=== PATIENT | female | born 1945 | race Caucasian/White ===

== ENCOUNTER → 2020-09-14 11:27 | Outpatient (CLI) | payer MEDICARE, SELFPAY ==
--- NOTE | ~2020-09-14 | XR_ITS ---
EXAMINATION: XR chest 2V DATE: 09/14/2020 12:03 INDICATION: Other specified symptoms and signs involving the circulatory system. Cough. Shortness of breath. TECHNIQUE: Frontal and lateral views of the chest were obtained. COMPARISON: Chest 2 views 09/29/2013 FINDINGS: There is mild atelectasis at the lung bases. There are tiny pleural effusions. No pneumotho rax. The heart size is normal. IMPRESSION: 1. Mild atelectasis at the lung bases. 2. Tiny pleural effusions. Reviewed, dictated and finalized at location B.
== END ==
PROVIDERS: PCP Physician Assistant; Visit Provider Nurse Practitioner Family
DX: R09.89 Other specified symptoms and signs involving the circulatory and respiratory systems (principal); R91.8 Other nonspecific abnormal finding of lung field
CPT/HCPCS: 71046

== ENCOUNTER 2020-09-27 09:49 | Outpatient (CLI) | payer MEDICARE, SELFPAY ==
[2020-09-27 10:28] LABS: Anion Gap 7 mmol/L (8-16); Blood Urea Nitrogen 50 mg/dL (7-17); Calcium 9.9 mg/dL (8.4-10.2); Carbon Dioxide 30 mmol/L (22-30); Chloride 101 mmol/L (98-107); Estimated Glomerular Filt Rate 26; Glucose 367 mg/dL (65-105); Potassium 4.5 mmol/L (3.4-5.0); Sodium 138 mmol/L (137-145)
== END 2020-09-27 09:50 | disposition home or self-care (01) ==
LOC: ANHLAB 09:53
PROVIDERS: Visit Provider Internal Medicine Cardiovascular Disease
DX: R60.0 Localized edema (principal)
CPT/HCPCS: 36415; 80048

== ENCOUNTER 2021-01-22 13:30 | Outpatient (CLI) | payer MEDICARE, SELFPAY ==
--- NOTE | ~2021-01-22 | US_ITS ---
EXAMINATION: US venous doppler [facility] DATE: 01/22/2021 14:02 INDICATION: Left lower limb pain TECHNIQUE: Lamar scale images without and with compression and Doppler images of the left lower extrem ity veins were obtained. COMPARISON: None FINDINGS: The left common femoral vein, profunda femoral vein, femoral vein, popliteal vein, peroneal trunk, posterior tibial veins, and greater saphenous vein are patent. IMPRESSION: 1. Patent left lower extremity veins. No evidence of deep venous thrombosis. Reviewed, dictated and finalized at location A.
== END 2021-01-22 13:31 | disposition home or self-care (01) ==
PROVIDERS: PCP Family Medicine; Visit Provider Family Medicine
DX: M79.605 Pain in left leg (principal)
CPT/HCPCS: 93971

== ENCOUNTER 2021-01-23 09:34 | Outpatient (CLI) | payer MEDICARE, SELFPAY ==
--- NOTE | ~2021-01-23 | XR_ITS ---
EXAMINATION: XR lumbar spine min 4V DATE: 01/23/2021 10:10 INDICATION: Low back pain TECHNIQUE: Anteroposterior, lateral, and bilateral oblique views of the lumbar spine, and cone-down l ateral view of the lumbosacral junction were obtained. COMPARISON: None. FINDINGS: There are 6 mm of anterolisthesis of L4 on L5. There is moderate loss of intervertebral dis c space height at L4-5 and L5-S1. The vertebral body heights are maintained. There is no fracture. Sm all degenerative osteophytes project from the anterior endplates of multiple vertebral bodies. Advanc ed facet osteoarthritis is noted in the lower lumbar spine. Calcified atherosclerosis is noted. IMPRESSION: 1. Moderate to severe lower lumbar spondylosis without acute findings. Reviewed, dictated and finalized at location A.
== END 2021-01-23 09:35 | disposition home or self-care (01) ==
PROVIDERS: PCP Family Medicine; Visit Provider Family Medicine
DX: M54.5 Low back pain (principal); M47.816 Spondylosis without myelopathy or radiculopathy, lumbar region
CPT/HCPCS: 72110

== ENCOUNTER → 2021-03-18 08:22 | Outpatient (CLI) | payer MEDICARE, SELFPAY ==
--- NOTE | ~2021-03-18 | US_ITS ---
EXAMINATION: US renal BI EXAM DATE: 03/18/2021 09:06 INDICATION: Abnormal results of kidney function studies . TECHNIQUE: Multiple grayscale and Doppler images of the kidneys were obtained (by a technologist who performed the scan) and subsequently reviewed. There is no prior study for comparison. FINDINGS: There is bilateral renal cortical thinning. Right kidney: There is normal contour and increased echogenicity. It measures 9.4 x 5.3 x 5.0 centim eters. Several anechoic lesions consistent with cysts measuring up to 3.9 cm. There is no hydroneph rosis. Left kidney: There is normal contour and increased echogenicity. It measures 9.8 x 5.6 x 5.5 centime ters. There is anechoic lesion consistent with cyst measuring 1.7 cm. There is no hydronephrosis. Bladder unremarkable. IMPRESSION: 1. Echogenic, thinned renal cortices consistent with atrophy, medical renal disease. 2. Renal cysts. Reviewed, dictated and finalized at location B. IMPRESSION: 1. Echogenic, thinned renal cortices consistent with atrophy, medical renal di sease. 2. Renal cysts.
== END ==
PROVIDERS: PCP Family Medicine; Visit Provider Internal Medicine Nephrology
DX: R94.4 Abnormal results of kidney function studies (principal); N28.1 Cyst of kidney, acquired
CPT/HCPCS: 76775

== ENCOUNTER 2021-12-20 13:14 | Outpatient (RCR) | payer MEDICARE, SELFPAY ==
[2021-12-20] MEDS: FAMOTIDINE 20 MG TABLET PO (14:03)
[2021-12-20] MEDS: ACETAMINOPHEN 325 MG TABLET 650 MG PO (14:03)
[2021-12-20] MEDS: diphenhydrAMINE HCl CAP 25 MG CAPSULE PO (14:04)
[2021-12-20 14:19] VITALS: BP 133/60; PULSE 74; RESP 18; TEMP 36.6; O2SAT 96
[2021-12-20] MEDS: BEBTELOVIMAB 175 MG/2 ML VIAL IV PUSH (14:29)
[2021-12-20 15:19] VITALS: BP 148/68; PULSE 70; RESP 18; O2SAT 99
== END 2021-12-20 16:00 ==
LOC: AMCINF 13:14
PROVIDERS: PCP Family Medicine; Referring Provider Family Medicine; Visit Provider Internal Medicine Hematology & Oncology
DX: U07.1 COVID-19 (principal); I10 Essential (primary) hypertension; I25.10 Atherosclerotic heart disease of native coronary artery without angina pectoris; E11.9 Type 2 diabetes mellitus without complications
CPT/HCPCS: A9270; M0222; Q0222

== ENCOUNTER 2022-05-14 07:48 | Outpatient (CLI) | payer MEDICARE, SELFPAY ==
--- NOTE | 2022-06-11 18:46 | WPDSLEEPSTUD ---
Sleep Study Date of Study: 05/14/22 Ordering Provider: Good Jessica MD Interpreting Physician: Linh Álvarez DO Sleep Study Type: CPAP Titration Height: 1.52 m Weight: 112.491 kg Body Mass Index: 48.4 Neck Circumference (inches): 17.5 Justice: 4 Reason for Sleep Study Known SATYA on CPAP. Her machine is no longer transmitting data. Sleep History The patient is a 76-year-old female with atrial fibrillation, asthma, stage 4 chronic kidney disease, hypertension, hyperlipidemia, type 2 diabetes, urinary incontinence and SATYA on CPAP that had a sleep study ordered by her pressure control supervisor. The patient frequently awakens from sleep short of breath. She rarely awakens at night with heartburn, belching or cough. She rarely snores but is rarely loud enough others complain. She occasionally has trouble sleeping when she has a cold. She occasionally wakes up gasping for air throughout the night. She denies having breathing problems at night observed by herself or others. She denies sweating excessively at night. She frequently has heart palpitations or irregular heartbeats during the night. She rarely falls asleep during the day and never while driving. She denies sleep paralysis and cataplexy. She denies having trouble at school or work due to sleepiness. She occasionally experiences vivid dreamlike scenes upon awakening or falling asleep. She frequently feels afraid of going to sleep. She occasionally has nightmares and occasionally remembers her dreams. She occasionally has thoughts racing through her mind. She denies feeling sad or depressed. She frequently has anxiety. She frequently has muscular tension. She frequently notices parts of her body jerk. She frequently kicks during the night. She frequently has crawling and aching feelings in her legs as well as leg pain during the night. She rarely grinds her teeth during sleep but never awakens with morning jaw pain. She is occasionally bothered by pain during the day but never awakened by pain during the night. She occasionally wakes up feeling stiff in the morning. She occasionally wakes up with sore or achy muscles. She frequently wakes up with pain in the neck, spine or other joints. She goes to bed at 10:30 p.m. on both weekdays and weekends. He can take her 10-20 minutes to fall asleep. She wakes up 1-2 times throughout the night to urinate and let her dogs out. It takes her 1 hour to fall back asleep. She wakes up at 7:00 a.m. on both weekdays and weekends. She typically gets 8 hours of sleep per night. She will stay in bed for 10 minutes after waking up in the morning. She currently lives with her . She does not consume any caffeinated beverages within 2 hours of bedtime. She does not engage in physical exercise before bedtime. She will watch television before falling asleep. She will occasionally take naps in the afternoon or the evening and they are refreshing. She drinks half a cup of caffeinated beverage per day. She denies tobacco, alcohol and recreational drug use. [facility] Past Medical History Medical History (Updated 06/11/22 @ 20:35 by Linh Álvarez DO) Afib Anemia Asthma Bibasilar crackles Body mass index (BMI) 35 or more (11/10/18) Chronic atrial fibrillation CKD (chronic kidney disease) stage 3, GFR 30-59 ml/min COVID-19 Cystocele with rectocele Essential hypertension High cholesterol History of blood transfusion HTN (hypertension) Lumbar radiculopathy Mild intermittent asthma Mitral valve disease SATYA (obstructive sleep apnea) Osteoarthritis of multiple joints Pelvic pain in female Post menopausal syndrome Presence of stent in coronary artery in patient with coronary artery disease Thickened endometrium Type 2 diabetes mellitus with hyperglycemia Urinary incontinence Surgical History Surgical History H/O dilation and curettage H/O knee surgery 2011, bilateral
[2022-06-11 19:04] VITALS: BMI 48.4
== END 2022-05-15 06:59 | disposition home or self-care (01) ==
LOC: ANHCSM 07:48
PROVIDERS: PCP Family Medicine; Visit Provider Internal Medicine Pulmonary Disease
DX: G47.33 Obstructive sleep apnea (adult) (pediatric) (principal); Z99.89 Dependence on other enabling machines and devices; G47.61 Periodic limb movement disorder
CPT/HCPCS: 95811

== ENCOUNTER 2023-01-12 11:26 | Outpatient (CLI) | payer MEDICARE, SELFPAY ==
--- NOTE | ~2023-01-12 | XR_ITS ---
XR chest 2V 01/12/2023 11:49 Indication: Shortness of breath Procedure: 2 view chest Comparison: Comparison to multiple prior studies sequentially, with oldest reviewed study dated 07/10. Findings: Heart size normal. There are linear infiltrates of the lung bases which most likely represe nt atelectasis or scarring/fibrosis. No acute focal pneumonia, pleural effusion, edema or pneumothora x. No acute osseous abnormality. Impression: 1: Bibasilar atelectasis/scarring. Reviewed, dictated and finalized at location B. Impression: 1: Bibasilar atelectasis/scarring.
== END 2023-01-12 11:27 | disposition home or self-care (01) ==
PROVIDERS: PCP Family Medicine; Visit Provider Internal Medicine Nephrology
DX: N18.4 Chronic kidney disease, stage 4 (severe) (principal); R06.02 Shortness of breath; R53.83 Other fatigue; R91.8 Other nonspecific abnormal finding of lung field
CPT/HCPCS: 71046

== ENCOUNTER 2023-07-25 08:55 | Inpatient (IN) | payer MEDICARE, SELFPAY ==
[2023-07-25] VITALS (29 sets, daily range): BP systolic 121–168; BP diastolic 63–88; PULSE 58–77; RESP 8–32; TEMP 36.3–36.8; O2SAT 93–100; BMI 45.2
--- NOTE | ~2023-07-25 | XR_ITS ---
EXAMINATION: XR chest 1V portable DATE: 07/25/2023 09:16 INDICATION: Chest pain. TECHNIQUE: A single frontal view of the chest was obtained. COMPARISON: Chest 2 views 01/12/2023 FINDINGS: There is mild atelectasis in the lower lung zones. No pleural effusion or pneumothorax. The heart size is normal. IMPRESSION: 1. Mild atelectasis in the lower lung zones. Reviewed, dictated and finalized at location A. ER TERRAPIN
--- NOTE | ~2023-07-25 | US_ITS ---
EXAMINATION: US soft tissue UE LT DATE: 07/28/2023 15:56 INDICATION: Erythema and draining wound at the left antecubital fossa TECHNIQUE: Multiple grayscale and Doppler ultrasound images of the region of concern at the left ante cubital fossa were obtained. COMPARISON: None FINDINGS: There is focal mild subcutaneous edema likely related to cellulitis surrounding a 1.6 x 0.6 x 0.3 cm relatively superficial anechoic fluid collection with hypoechoic reportedly draining tract extending to the skin surface. The fluid collection lies along side a vessel within which there is internal vas cular flow on color Doppler but which appears demonstrates thickened luis raising suspicion for thro mbophlebitis. IMPRESSION: 1. Mild cellulitis surrounding a 1.6 x 0.6 x 0.3 cm likely draining abscess in the subcutaneous fat a t the left antecubital fossa along side a vessel demonstrating thickened luis which is suspicious fo r thrombophlebitis. Reviewed, dictated and finalized at location A. STRIAL REFRIGERATION MECHANIC IMPRESSION: 1. Mild cellulitis surrounding a 1.6 x 0.6 x 0.3 cm likely draining abscess in the subcutaneous fat at the left antecubital fossa along side a vessel demonstr ating thickened luis which is suspicious for thrombophlebitis.
--- NOTE | ~2023-07-25 | XR_ITS ---
EXAMINATION: XR chest 1V portable DATE: 07/28/2023 09:45 INDICATION: Fever. TECHNIQUE: A single frontal view of the chest was obtained. COMPARISON: Chest single view 07/25/2023, CT abdomen and pelvis 05/30/13 FINDINGS: There is mild atelectasis at the lung bases. No pleural effusion or pneumothorax. The heart size is normal. There is a prominent left paracardial fat pad. IMPRESSION: 1. Mild atelectasis at the lung bases. Reviewed, dictated and finalized at location E. ERCIAL ACCOUNTANT
--- NOTE | 2023-07-25 08:52 | ECG_ITS ---
Measurements Intervals [place] Rate: 62 P: 84 WI: 229 QRS: -32 QRSD: 109 T: 30 QT: 429 QTc: 437 Interpretive Statements SINUS RHYTHM WITH FIRST DEGREE AV BLOCK LEFT AXIS DEVIATION LOW QRS VOLTAGE IN PRECORDIAL LEADS CONSIDER ANTERIOR INFARCT, AGE INDETERMINATE INFERIOR INFARCT, AGE INDETERMINATE ABNORMAL ECG NO PREVIOUS ECG AVAILABLE FOR COMPARISON Electronically Signed On 07-25-2023 9:11:34 ACCOUNTING RECONCILIATION CLERK by Tavo Cristobal D.O.
--- NOTE | 2023-07-25 09:07 | ED.CHESTPAIN ---
HPI - Chest Pain General Chief Complaint: Chest Pain Stated Complaint: chest pain History of Present Illness HPI narrative: 78-year-old female presenting to the emergency department evaluation of chest pain. Patient states that approximately 1 hour prior to arrival she had 15 minutes of chest pain with associated diaphoresis. Patient denies any prior history of coronary artery disease. Patient does have history of diabetes, hypertension and cardiac stents. Patient reports she had multiple cardiac stents about 15 years ago. Patient has had nuclear med stress test since then. Related Data Home Medications Medication Instructions Recorded Confirmed flecainide 100 mg tablet 200 mg PO Q12H 04/28/19 07/25/23 furosemide 40 mg tablet 40 mg PO QAM 06/20/20 07/25/23 amlodipine 5 mg tablet 5 mg PO QAM 04/27/23 07/25/23 fluticasone 500 mcg-salmeterol 50 2 inh inhalation Q12H 04/27/23 07/25/23 mcg/dose blistr powdr for inhalation (Advair Diskus) allopurinol 100 mg tablet 100 mg PO QPM 07/25/23 07/25/23 clobetasol 0.05 % scalp solution 1 applic topical DAILY PRN Dry Skin 07/25/23 07/25/23 colchicine 0.6 mg tablet 0.6 mg PO .COMPLEX PRN gout 07/25/23 07/25/23 ezetimibe 10 mg tablet 10 mg PO QAM 07/25/23 07/25/23 insulin degludec 100 unit/mL (3 30 unit subcut QAM 07/25/23 07/25/23 mL) subcutaneous pen (Tresiba FlexTouch U-100 insulin) montelukast 10 mg tablet 10 mg PO QPM 07/25/23 07/25/23 oxybutynin chloride 5 mg tablet 5 mg PO QPM 07/25/23 07/25/23 valsartan 320 mg tablet 320 mg PO QAM 07/25/23 07/25/23 Allergies Allergy/AdvReac Type Severity Reaction Status Date / Time cat dander Allergy Mild Unknown Verified 05/26/23 10:34 mold Allergy Unknown Unknown Verified 05/26/23 10:34 jurdiance Allergy Mild Nausea and Uncoded 05/26/23 10:34 Vomiting Review of Systems Review of Systems: All systems reviewed & are unremarkable except as noted in HPI and below PMFSH Past Medical History Medical History Anemia Asthma mild intermittent CAD (coronary artery disease) Chronic atrial fibrillation Chronic kidney disease, stage 4 (severe) COVID-19 (2021) Cystocele with rectocele Environmental allergies Gout High cholesterol History of blood transfusion HTN (hypertension) Lumbar radiculopathy Mild bibasilar atelectasis Mitral valve disease SATYA on CPAP Osteoarthritis of multiple joints Post menopausal syndrome Thickened endometrium Type 2 diabetes mellitus with hyperglycemia Urinary incontinence Surgical History Surgical History H/O dilation and curettage H/O heart artery stent H/O knee surgery 2010, bilateral H/O myomectomy 2014 [place] teeth removed Family History Family History Mother Diabetes mellitus Hypertension Family history of malignant neoplasm of breast in first degree relative Sibling Diabetes mellitus Family history of chronic obstructive pulmonary disease Father Cerebrovascular accident, Onset Age: 64 Hypertension Social History Social History Smoking status: Never smoker Second hand tobacco smoke exposure: No Alcohol intake: never Substance use: never Substance use type: does not use Do You Feel Safe in your Home?: Yes Lack of Transportation: No Lack of Food: Never True Current Housing: I Have Housing Concerned About Future Housing: No Difficulty Paying Gas/Electric Bills: No Difficulty Paying for Meds: No Currently Unemployed: YES Education: Decline to Answer Difficulty w/ Childcare or Family Care: No Occupation/Education: retired Gender identity (if verbalized by the patient): Female Sexual Orientation (if Verbalized by the Patient): Straight or Heterosexual Spiritual care concerns: No Agree to blood products: Yes Ex
[2023-07-25] MEDS: NITROGLYCERIN SL 0.4 MG TABLET SUBLINGUAL ×2 (09:11→16:23)
[2023-07-25 09:13] LABS: Basophils Percent Auto 0.5 % (0.2-1.2); Eosinophils Absolute Auto 0.4 K/mm3 (0-0.3); Eosinophils Percent Auto 5.3 % (0-4.4); Hematocrit 42.2 % (37.0-47.0); Immature Granulocyte Absolute 0.04 K/mm3 (0.00-0.031); Immature Granulocyte Percent A 0.5 % (0-0.5); Lymphocytes Absolute Auto 1.91 K/mm3 (0.9-3.2); Lymphocytes Percent Auto 24.7 % (18.3-44.2); Mean Corpuscular HGB Conc 30.8 g/dl (32-36); Mean Corpuscular Hemoglobin 29.2 pg (26-34); Mean Corpuscular Volume 94.8 fl (80-100); Mean Platelet Volume 10.6 fl (7.4-10.4); Monocytes Absolute Auto 0.5 K/mm3 (0.1-0.6); Monocytes Percent Auto 6.5 % (2.6-8.5); Neutrophils Absolute Auto 4.8 K/mm3 (1.3-6.7); Neutrophils Percent Auto 62.5 % (45.5-73.1); Platelet Count Result 280 k/mm3 (150-375); Red Blood Count 4.45 M/mm3 (4.2-5.4); Red Cell Distribution Width 14.4 % (11.5-14.5); White Blood Count 7.7 K/mm3 (4.5-10.0)
[2023-07-25 09:23] LABS: Alanine Aminotransferase 16 U/L (6-35); Albumin Level 4.2 g/dL (3.5-5.1); Alkaline Phosphatase 85 U/L (38-126); Anion Gap 7 mmol/L (8-16); Aspartate Amino Transferase 22 U/L (14-36); Bilirubin,Total 0.6 mg/dL (0.2-1.3); Blood Urea Nitrogen 35 mg/dL (7-17); Calcium 9.5 mg/dL (8.4-10.2); Carbon Dioxide 26 mmol/L (22-30); Chloride 105 mmol/L (98-107); Estimated Glomerular Filt Rate 34; Glucose 135 mg/dL (65-110); Potassium 4.4 mmol/L (3.4-5.0); Sodium 138 mmol/L (137-145)
[2023-07-25 09:24] LABS: Prothrombin Time 13.2 Seconds (11.1-14.7)
[2023-07-25 09:25] LABS: Partial Thromboplastin Time 27.7 SECONDS (22.3-36.8)
[2023-07-25 09:34] LABS: NT Pro B Type Natriuretic Pept 65 pg/mL (19.9-100); Troponin I < 0.012 ng/mL (0.000-0.034)
--- NOTE | 2023-07-25 09:54 | ECG_ITS ---
Measurements Intervals [place] Rate: 59 P: 102 AL: 235 QRS: -36 QRSD: 114 T: 14 QT: 424 QTc: 422 Interpretive Statements SINUS BRADYCARDIA WITH FIRST DEGREE AV BLOCK INTRAVENTRICULAR CONDUCTION DELAY LOW QRS VOLTAGE IN PRECORDIAL LEADS CONSIDER ANTERIOR INFARCT, AGE INDETERMINATE INFERIOR INFARCT, AGE INDETERMINATE BASELINE ARTIFACT- I, II, III, AVR, AVL, AVF ABNORMAL ECG COMPARED TO ECG 07/25/2023 08:59:02 SINUS BRADYCARDIA NOW PRESENT Electronically Signed On 07-25-2023 16:58:51 PET TRAINING INSTRUCTOR by Tavo Cristobal D.O.
[2023-07-25 12:54] LABS: Troponin I 0.039 ng/mL (0.000-0.034)
[2023-07-25 13:30] LABS: Appearance Urine Clear (Clear); Bilirubin Urine Negative (Negative); Blood Urine Negative (Negative); Color Urine Yellow (Yellow); Glucose Urine UA Negative (Negative); Ketones Urine Negative (Negative); Leukocyte Esterase Ur Negative LEU/UL (Negative); Nitrate Urine Negative (Negative); Protein Urine Negative (Negative); Specific Grav Ur 1.014 (1.001-1.035); Urobilinogen Urine 0.2 mg/dL (<2.0); pH Urine 5.5 (5.0-9.0)
[2023-07-25 13:37] LABS: Add Urine Microscopic? NO
--- NOTE | 2023-07-25 14:00 | PM.IMHP ---
H&P: HPI History of Present Illness Date/Time: 07/25/23 14:00 Chief Complaint: Chest Pain Narrative: 78 y/o F presents here with chest pain with PMH of chronic AFib, anemia, asthma, CKD, HTN, HLD, SATYA, diabetes, mitral valve disease, and CAD with stents in place. Patient presents here from home via EMS for evaluation of chest pain. Pain began around 8:00 a.m. and lasted approximately 15 minutes. Patient was sitting and helping her with plumbing (turning water on and off while he made adjustments) when chest pain began. Pain across chest and described as burning with slow increase in intensity. Severity was a 7-8/10. Pain radiated into her left arm and tightness radiating into left side of neck. Experienced associated diaphoresis/cold sweats, fatigue, and shortness of breath. Denied palpitations, syncope, jaw pain, nausea, vomiting, sense of doom, GERD symptoms, or epigastric pain. Patient took aspirin 81 mg of chewable ASA and pain resolved. No other alleviating or aggravating factors. Patient has a cardiac history, CAD with 2 stents placement in (1999'). Currently follows with Jose VELOZ, last visit on 06/2023. Patient has had 2 recurrent episodes of chest pain. Second episode today was during transfer to the IMU, 8/10, occurred after patient ambulated to the restroom, and self-aborted. Third episode around 16:30 and worse than second episode. Pain similar in characteristics to initial episode, but increased in severity to 9/10. Pain reduced to 2/10 post SL nitro but pain/achiness arm and neck remain. Associated SOB and occured at rest. No active nausea or diaphoresis. Initial VS at presentation: 97.8, HR in 59, RR 16, 168/73, 97% on RA. ED workup showed no leukocytosis, no anemia, creatinine 1.5 (baseline), and UA not suspicious for UTI. Initial troponin negative, 2nd troponin 0.039. EKG showed first-degree AV block, left axis deviation, low QRS voltage, indeterminate age inferior infarct, possible anterior infarct age indeterminate. CXR showed mild atelectasis in the lower lung zones. Review of Systems Review of Systems: All systems reviewed & are unremarkable except as noted in HPI and below ON LICENSE OF [facility] Past Medical History Medical History Anemia Asthma mild intermittent CAD (coronary artery disease) Chronic atrial fibrillation Chronic kidney disease, stage 4 (severe) COVID-19 (2021) Cystocele with rectocele Environmental allergies Gout High cholesterol History of blood transfusion HTN (hypertension) Lumbar radiculopathy Mild bibasilar atelectasis Mitral valve disease SATYA on CPAP Osteoarthritis of multiple joints Post menopausal syndrome Thickened endometrium Type 2 diabetes mellitus with hyperglycemia Urinary incontinence Surgical History Surgical History H/O dilation and curettage H/O heart artery stent H/O knee surgery 2010, bilateral H/O myomectomy 2014 [place] teeth removed Family History Family History Mother Diabetes mellitus Hypertension Family history of malignant neoplasm of breast in first degree relative Sibling Diabetes mellitus Family history of chronic obstructive pulmonary disease Father Cerebrovascular accident, Onset Age: 64 Hypertension Social History Social History Smoking status: Never smoker Second hand tobacco smoke exposure: No Alcohol intake: never Substance use: never Substance use type: does not use Do You Feel Safe in your Home?: Yes Lack of Transportation: No Lack of Food: Never True Current Housing: I Have Housing Concerned About Future Housing: No Difficulty Paying Gas/Electric Bills: No Difficulty Paying for Meds: No Currently Unemployed: YES Education: Decline to Answer Difficulty w/ Childcare or Family C
[2023-07-25] MEDS: HEPARIN SODIUM 5,000 UNITS/ML VIAL 4000 UNITS IV PUSH ×2 (14:36→21:31)
[2023-07-25] MEDS: HEPARIN SOD/D5W 100 UNITS/ML 25,000 UNITS/250 ML BAG 9 UNITS IV CONT (14:37)
--- NOTE | 2023-07-25 15:34 | ADMGEN ---
This patient, Danielle Martines, was admitted to IMU Room 214-01. Patient/family oriented to hospital policies and general routines including ID bracelet, bed and alarms, visiting hours, pain management, procedures, bathroom and other care routines, personal items, smoking policy, room service/diet, and visiting hours. Information on how to activate the Rapid Response Team has been discussed. Patient/Family are encouraged to report perceived risks to care and to ask questions if they do not understand what they are told or what they should do.
[2023-07-25 15:58] LABS: HDL Direct 33 mg/dL
--- NOTE | 2023-07-25 16:00 | ECG_ITS ---
Measurements Intervals [place] Rate: 66 P: 96 [place]: 216 QRS: -41 QRSD: 125 T: 14 QT: 396 QTc: 417 Interpretive Statements SINUS RHYTHM WITH FIRST DEGREE AV BLOCK LEFT AXIS DEVIATION LOW VOLTAGE IN PRECORDIAL LEADS BORDERLINE R WAVE PROGRESSION, ANTERIOR LEADS INFERIOR INFARCT, AGE INDETERMINATE BASELINE ARTIFACT- I, II, III, AVR, AVL, AVF, V1-V6 ABNORMAL ECG COMPARED TO ECG 07/25/2023 12:30:28 SINUS RHYTHM NOW PRESENT Electronically Signed On 07-26-2023 8:08:11 WASTEWATER PROJECT MANAGER by Tavo Cristobal D.O.
[2023-07-25 16:08] LABS: LDL Cholesterol Direct 98 mg/dL
[2023-07-25] MEDS: NITROGLYCERIN OINTMENT 1 INCH DOSE TRANSDERM (17:13)
[2023-07-25] MEDS: ACETAMINOPHEN 500 MG TABLET 1000 MG PO (17:14)
[2023-07-25 18:23] LABS: Cholesterol 162 mg/dL (0-200)
[2023-07-25] MEDS: oxyBUTYnin CHLORIDE 5 MG TABLET PO (20:01)
[2023-07-25] MEDS: allopurinoL 100 MG TABLET PO (20:01)
[2023-07-25] MEDS: MONTELUKAST SODIUM 10 MG TABLET PO (20:01)
[2023-07-25] MEDS: FLECAINIDE ACETATE 100 MG TABLET 200 MG PO (20:02)
[2023-07-25] MEDS: INSULIN ASPART (*BKC) 100 UNITS/ML SUB-Q (20:16)
[2023-07-25 20:28] LABS: Glucose Point of Care 201 mg/dl (65-105)
[2023-07-25 20:58] LABS: Partial Thromboplastin Time 51.2 SECONDS (22.3-36.8)
[2023-07-26] VITALS (22 sets, daily range): BP systolic 96–134; BP diastolic 50–74; PULSE 58–88; RESP 17–24; TEMP 36.3–36.8; O2SAT 93–100
[2023-07-26 00:05] LABS: Glucose Point of Care 82 mg/dl (65-105)
[2023-07-26] MEDS: NITROGLYCERIN OINTMENT 1 INCH DOSE TRANSDERM ×5 (00:24→23:22)
[2023-07-26 03:36] LABS: Basophils Absolute Auto 0.1 K/mm3 (0.0-0.1); Basophils Percent Auto 0.5 % (0.2-1.2); Eosinophils Absolute Auto 0.4 K/mm3 (0-0.3); Eosinophils Percent Auto 3.8 % (0-4.4); Hematocrit 41.2 % (37.0-47.0); Hemoglobin 12.8 g/dL (12.0-15.0); Immature Granulocyte Absolute 0.03 K/mm3 (0.00-0.031); Immature Granulocyte Percent A 0.3 % (0-0.5); Lymphocytes Absolute Auto 2.57 K/mm3 (0.9-3.2); Lymphocytes Percent Auto 25.6 % (18.3-44.2); Mean Corpuscular HGB Conc 31.1 g/dl (32-36); Mean Corpuscular Hemoglobin 29.1 pg (26-34); Mean Corpuscular Volume 93.6 fl (80-100); Mean Platelet Volume 10.2 fl (7.4-10.4); Monocytes Absolute Auto 0.7 K/mm3 (0.1-0.6); Monocytes Percent Auto 6.7 % (2.6-8.5); Neutrophils Absolute Auto 6.3 K/mm3 (1.3-6.7); Neutrophils Percent Auto 63.1 % (45.5-73.1); Platelet Count Result 277 k/mm3 (150-375); Red Cell Distribution Width 14.1 % (11.5-14.5)
[2023-07-26 03:51] LABS: Anion Gap 6 mmol/L (8-16); Blood Urea Nitrogen 31 mg/dL (7-17); Calcium 9.2 mg/dL (8.4-10.2); Carbon Dioxide 28 mmol/L (22-30); Chloride 104 mmol/L (98-107); Estimated CRCL calculation 36 ml/min; Estimated Glomerular Filt Rate 40; Glucose 106 mg/dL (65-110); Potassium 3.8 mmol/L (3.4-5.0); Sodium 138 mmol/L (137-145)
[2023-07-26 03:56] LABS: Partial Thromboplastin Time 117.8 SECONDS (22.3-36.8)
[2023-07-26 07:52] LABS: Glucose Point of Care 161 mg/dl (65-105)
[2023-07-26] MEDS: FLUTICASONE/SALMETEROL 230-21 MCG INHALER 1 PUFF 2 PUFF INHALATION ×2 (08:41→19:48)
[2023-07-26] MEDS: EZETIMIBE 10 MG TABLET PO (10:01)
[2023-07-26] MEDS: PANTOPRAZOLE SODIUM IV 40 MG VIAL IV PUSH (10:01)
[2023-07-26] MEDS: FUROSEMIDE 40 MG TABLET PO (10:01)
[2023-07-26] MEDS: FLECAINIDE ACETATE 100 MG TABLET 200 MG PO (10:02)
[2023-07-26] MEDS: VALSARTAN 160 MG TABLET 320 MG PO (10:02)
[2023-07-26] MEDS: amLODIPine BESYLATE 5 MG TABLET PO (10:02)
[2023-07-26] MEDS: INSULIN GLARGINE (*BKC) 100 UNITS/ML 30 UNITS SUB-Q (10:06)
--- NOTE | 2023-07-26 10:34 | PM.CNCAR ---
Assessment and Plan Assessment and plan (1) NSTEMI (non-ST elevated myocardial infarction): Code(s): I21.4 - Non-ST elevation (NSTEMI) myocardial infarction Status: Acute Assessment and Plan: Patient has symptoms consistent with a non ST-elevation myocardial infarction. Started her on a heparin drip for which she remains. Nitroglycerin paste 1 in Q 6 hours to be continued. Aspirin 81 mg p.o. daily. Continue Zetia, amlodipine, valsartan. She is not on a statin per patient wishes and side effects. 2D echocardiogram Doppler will be ordered and reviewed. Will keep NPO after midnight and after discussing risks benefits alternatives she is willing to proceed with coronary angiogram tomorrow. (2) Chronic kidney disease, stage 4 (severe): Code(s): N18.4 - Chronic kidney disease, stage 4 (severe) Status: Acute Assessment and Plan: Will hold furosemide for now in preparation for coronary angiogram tomorrow to reduce worsening renal function risk. (3) HTN (hypertension): Qualifiers: Hypertension type: primary hypertension Qualified Code(s): I10 - Essential (primary) hypertension Code(s): I10 - Essential (primary) hypertension Status: Acute Assessment and Plan: Generally at goal (4) CAD (coronary artery disease): Code(s): I25.10 - Atherosclerotic heart disease of [place] coronary artery without angina pectoris Status: Acute Assessment and Plan: Previous stents to the circumflex and RCA. (5) Afib: Qualifiers: Atrial fibrillation type: paroxysmal Qualified Code(s): I48.0 - Paroxysmal atrial fibrillation Code(s): I48.91 - Unspecified atrial fibrillation Status: Acute Assessment and Plan: She is on improper dose of flecainide per medical reconciliation. Will reduce her flecainide to 100 mg p.o. q.12 hours. Given her coronary disease history, would like to transition off of flecainide completely. History of Present Illness History of Present Illness Consult date/time: 07/26/23 10:34 Requesting physician: Vikram Mir MD Consult reason: Other (Non-STEMI) Reason For Visit: NSTEMI Narrative: Reason for consultation: Non-STEMI Requesting provider: Dr. Mir Date of service 07/26/2023 History patient is a 78-year-old female patient of mine who has a history of CAD. She has had previous stent placement to the circumflex and RCA dating back to 2001. Most recent angiogram showed a tiny 95% stenosis of a high obtuse marginal branch and [id number] disease elsewhere and medical management was pursued. She has had a history of GI bleeding and is not on anticoagulation despite her atrial fibrillation history. She was helping her yesterday when she developed acute onset of chest pain which was severe and radiated down her left arm. She had associated shortness of breath and diaphoresis. Symptoms started about 8:00 a.m.. It did resolve after a few minutes of chewing an aspirin. Because of the severity of the pain though she did call 911 came to the hospital. She did rule in for myocardial infarction. She has had 2 other episodes of chest pain while on the floor. I started her on nitroglycerin paste yesterday and since that time her chest pain has not recurred. She has had little bit of intermittent chest tightness that has radiated up into her neck but currently is pain-free. She has had less swelling. She denies any significant shortness of breath, syncope, presyncope, paroxysmal nocturnal dyspnea, orthopnea, palpitations Review of Systems Review of Systems: All systems reviewed & are unremarkable except as noted in HPI and below Constitutional: Constitutional: Denies body ache(s) Eyes: Eyes: Denies blurry vision ENT: Reports Normal hearing present Cardiovascular: Cardiovascular: Reports chest pain and Reports leg edema Respiratory: Respiratory: Denies dyspnea Gastrointestinal: Gastroint
[2023-07-26 10:37] LABS: Partial Thromboplastin Time 57.1 SECONDS (22.3-36.8)
[2023-07-26 11:36] LABS: Glucose Point of Care 135 mg/dl (65-105)
[2023-07-26] MEDS: ASPIRIN 81 MG ENTERIC TABLET PO (11:36)
[2023-07-26] MEDS: HEPARIN SODIUM 5,000 UNITS/ML VIAL 3000 UNITS IV PUSH (11:37)
--- NOTE | 2023-07-26 11:58 | PM.IMPN ---
Progress Note: A&P Assessment and Plan (1) NSTEMI (non-ST elevated myocardial infarction): Code(s): I21.4 - Non-ST elevation (NSTEMI) myocardial infarction Status: Acute Assessment and Plan: Patient has symptoms consistent with a non ST-elevation myocardial infarction. Started her on a heparin drip for which she remains. Nitroglycerin paste 1 in Q 6 hours to be continued. Aspirin 81 mg p.o. daily. Continue Zetia, amlodipine, valsartan. She is not on a statin per patient wishes and side effects. 2D echocardiogram Doppler will be ordered and reviewed. Will keep NPO after midnight and after discussing risks benefits alternatives she is willing to proceed with coronary angiogram tomorrow. (2) Afib: Qualifiers: Atrial fibrillation type: paroxysmal Qualified Code(s): I48.0 - Paroxysmal atrial fibrillation Code(s): I48.91 - Unspecified atrial fibrillation Status: Acute Assessment and Plan: She is on improper dose of flecainide per medical reconciliation. Will reduce her flecainide to 100 mg p.o. q.12 hours. Given her coronary disease history, would like to transition off of flecainide completely. Currently rate controlled at average 70 bpm on bedside telemetry. (3) Type 2 diabetes mellitus with chronic kidney disease: Qualifiers: Diabetes mellitus nursing home insulin use: with bracer use Chronic kidney disease stage: stage 4 (severe) Qualified Code(s): E11.22 - Type 2 diabetes mellitus with diabetic chronic kidney disease; N18.4 - Chronic kidney disease, stage 4 (severe); Z79.4 - skilled nursing (current) use of insulin Code(s): E11.22 - Type 2 diabetes mellitus with diabetic chronic kidney disease Status: Acute Assessment and Plan: - hypoglycemia protocol - POC blood glucose ACHS - home medication resumed/held -Tresiba continued, Ozempic held (NF). Injection day for Ozempic is on Tuesdays. - correction regimen ordered - low/high dose TIDWM and HS - A1C 7.4% in 05/2022 (4) HTN (hypertension): Qualifiers: Hypertension type: primary hypertension Qualified Code(s): I10 - Essential (primary) hypertension Code(s): I10 - Essential (primary) hypertension Status: Acute Assessment and Plan: Generally at goal (5) Chronic kidney disease, stage 4 (severe): Code(s): N18.4 - Chronic kidney disease, stage 4 (severe) Status: Acute Assessment and Plan: Will hold furosemide for now in preparation for coronary angiogram tomorrow to reduce worsening renal function risk. (6) CAD (coronary artery disease): Code(s): I25.10 - Atherosclerotic heart disease of [place] coronary artery without angina pectoris Status: Acute Assessment and Plan: Previous stents to the circumflex and RCA. Plan Patient seen by Cardiology and will have Cath done 07/26. Home Meds/Chronic Conditions - HLD: continue Zetia - asthma: Continue Advair, montelukast - gout: Continue allopurinol, colchicine p.r.n. Diet: heart healthy GI Prophylaxis: pantoprazole IVP DVT Prophylaxis: heparin gtt Lines: peripheral Code Status: Full Code Time Spent With Patient Time with patient: 25 - 35 minutes Subjective Date/time seen: 07/26/23 11:58 Interval history: Patient was admitted for chest pain with increased troponins, diagnosed with NSTEMI and Cardiology has seen her and is planning to go to the lab pack chemist tomorrow. Review of Systems Review of Systems: All systems reviewed & are unremarkable except as noted in HPI and below Exam Narrative: Awake alert oriented appears to be in no acute distress at present. Appears stated age Const: General: comfortable and no acute distress Other: , female, obese body habitus. HENMT: Face/Nose/Sinus: Normal nares present Mouth: Yes moist mucous membranes Eyes: General: appearance normal, both eyes and all related structures Sclera: sclerae normal Pupils: Equa
[2023-07-26] MEDS: HEPARIN SOD/D5W 100 UNITS/ML 25,000 UNITS/250 ML BAG 12 UNITS IV CONT (14:40)
[2023-07-26 15:48] LABS: Glucose Point of Care 131 mg/dl (65-105)
[2023-07-26] MEDS: ACETAMINOPHEN 325 MG TABLET 650 MG PO ×2 (17:05→23:22)
[2023-07-26] MEDS: oxyBUTYnin CHLORIDE 5 MG TABLET PO (17:11)
[2023-07-26] MEDS: allopurinoL 100 MG TABLET PO (17:11)
[2023-07-26] MEDS: MONTELUKAST SODIUM 10 MG TABLET PO (17:11)
[2023-07-26 18:48] LABS: Partial Thromboplastin Time 37.6 SECONDS (22.3-36.8)
[2023-07-26] MEDS: HEPARIN SODIUM 5,000 UNITS/ML VIAL 4000 UNITS IV PUSH (19:09)
[2023-07-26 20:30] LABS: Glucose Point of Care 223 mg/dl (65-105)
[2023-07-26] MEDS: FLECAINIDE ACETATE 100 MG TABLET PO (21:09)
[2023-07-27] VITALS (42 sets, daily range): BP systolic 64–146; BP diastolic 41–99; PULSE 60–86; RESP 15–89; TEMP 36.2–37.4; O2SAT 89–100
--- NOTE | 2023-07-27 | ECHO_ITS ---
Patient Info Name: Danielle Martines Age: 78 years : 1945 Gender: Female Ht: 60 in Wt: 236 lbs BSA: 2.20 m2 HR: 72 bpm BP: 96 / 47 mmHg Heart Rhythm: Sinus Rhythm Technical Quality: Fair Exam Date: 07/27/2023 9:11 AM Exam Location: Echo Lab Patient Status: Inpatient Admit Date: 07/26/2023 Staff Ordering Physician: Jayson Garcia MD Customer Advocacy Manager: Attending Provider: Govind Shea MD Referring Physician: Jose BEEBE; Exam Type: CA echo doppler color flow Study Info Indications I21.4 - Non-ST elevation (NSTEMI) myocardial infarction Complete two-dimensional, color flow and Doppler transthoracic echocardiogram is performed. Summary 1. Complete two-dimensional, color flow and Doppler transthoracic echocardiogram is performed. 2. Left ventricular chamber dimension is normal. 3. Left ventricular systolic function is normal, estimated at 65-70%. 4. There is mildly increased left ventricular wall thickness. 5. The left ventricular diastolic function is grade I diastolic dysfunction. 6. Left atrial chamber dimension is mildly enlarged. 7. There is mild aortic valve calcification. 8. The mitral valve annulus is mildly calcified. 9. There is mild mitral valve regurgitation. 10. There is mild tricuspid valve regurgitation. 11. There is mild pulmonic regurgitation. Left Ventricle Left ventricular chamber dimension is normal. Left ventricular systolic function is normal, estimated at 65-70%. There is mildly increased left ventricular wall thickness. The left ventricular diastolic function is grade I diastolic dysfunction. Right Ventricle Right ventricular chamber dimension is normal. Right ventricular systolic function is normal. Left Atria Left atrial chamber dimension is mildly enlarged. Right Atria Right atrial chamber dimension is normal. Atrial Septum Intact interatrial septum visualized by color flow imaging. Aortic Valve The aortic valve is trileaflet. There is moderate aortic valve sclerosis. There is no aortic valve stenosis. There is trace aortic valve regurgitation. There is mild aortic valve calcification. Pulmonic Valve The pulmonic valve is normal. There is no pulmonic valve stenosis. There is mild pulmonic regurgitation. Mitral Valve There is no mitral valve stenosis. There is mild mitral valve regurgitation. The mitral valve annulus is mildly calcified. Tricuspid Valve The tricuspid valve leaflets are normal. There is no significant tricuspid valve stenosis. There is mild tricuspid valve regurgitation. Pericardium/Pleural The pericardium appears normal. There is no pericardial effusion. Inferior Vena Cava Normal inferior vena cava with >50% collapse upon inspiration consistent with normal right atrial pressure, 5 mmHg. Aorta The aortic root size at the sinus of Valsalva is normal. Left Ventricular Outflow Tract Name Value Normal LVOT 2D LVOT Diameter 2.0 cm LVOT Doppler LVOT Peak Gradient 3 mmHg LVOT Mean Gradient 1 mmHg LVOT VTI 16 cm LVOT VTI/AV VTI Ratio 0.5 LVOT Stroke Volume 53 ml
[2023-07-27 01:55] LABS: Partial Thromboplastin Time 119.2 SECONDS (22.3-36.8)
[2023-07-27] MEDS: NITROGLYCERIN OINTMENT 1 INCH DOSE TRANSDERM (06:07)
[2023-07-27 08:26] LABS: Basophils Percent Auto 0.3 % (0.2-1.2); Eosinophils Absolute Auto 0.2 K/mm3 (0-0.3); Eosinophils Percent Auto 1.6 % (0-4.4); Hematocrit 38.8 % (37.0-47.0); Hemoglobin 12.2 g/dL (12.0-15.0); Immature Granulocyte Absolute 0.05 K/mm3 (0.00-0.031); Immature Granulocyte Percent A 0.4 % (0-0.5); Lymphocytes Absolute Auto 1.61 K/mm3 (0.9-3.2); Lymphocytes Percent Auto 12.1 % (18.3-44.2); Mean Corpuscular HGB Conc 31.4 g/dl (32-36); Mean Corpuscular Volume 95.3 fl (80-100); Mean Platelet Volume 11.1 fl (7.4-10.4); Monocytes Absolute Auto 0.9 K/mm3 (0.1-0.6); Monocytes Percent Auto 6.5 % (2.6-8.5); Neutrophils Absolute Auto 10.6 K/mm3 (1.3-6.7); Neutrophils Percent Auto 79.1 % (45.5-73.1); Platelet Count Result 264 k/mm3 (150-375); Red Blood Count 4.07 M/mm3 (4.2-5.4); Red Cell Distribution Width 14.4 % (11.5-14.5); White Blood Count 13.4 K/mm3 (4.5-10.0)
[2023-07-27 08:31] LABS: Alanine Aminotransferase 16 U/L (6-35); Albumin Level 3.7 g/dL (3.5-5.1); Alkaline Phosphatase 72 U/L (38-126); Anion Gap 8 mmol/L (8-16); Aspartate Amino Transferase 25 U/L (14-36); Bilirubin,Total 0.6 mg/dL (0.2-1.3); Blood Urea Nitrogen 41 mg/dL (7-17); Carbon Dioxide 24 mmol/L (22-30); Chloride 103 mmol/L (98-107); Estimated CRCL calculation 26 ml/min; Estimated Glomerular Filt Rate 26; Glucose 169 mg/dL (65-110); Potassium 3.9 mmol/L (3.4-5.0); Sodium 135 mmol/L (137-145)
[2023-07-27] MEDS: FLUTICASONE/SALMETEROL 230-21 MCG INHALER 1 PUFF 2 PUFF INHALATION ×2 (08:46→19:48)
[2023-07-27 08:52] LABS: Glucose Point of Care 165 mg/dl (65-105)
[2023-07-27 09:01] LABS: Partial Thromboplastin Time 58.4 SECONDS (22.3-36.8)
[2023-07-27] MEDS: PANTOPRAZOLE SODIUM IV 40 MG VIAL IV PUSH (09:01)
[2023-07-27] MEDS: FLECAINIDE ACETATE 100 MG TABLET PO (09:02)
[2023-07-27] MEDS: EZETIMIBE 10 MG TABLET PO (09:02)
[2023-07-27] MEDS: ASPIRIN 81 MG ENTERIC TABLET PO (09:02)
[2023-07-27] MEDS: INSULIN GLARGINE (*BKC) 100 UNITS/ML 30 UNITS SUB-Q (09:03)
[2023-07-27] MEDS: ACETAMINOPHEN 325 MG TABLET 650 MG PO ×2 (09:03→16:14)
[2023-07-27] MEDS: SODIUM CHLORIDE 0.9% IV 1,000 ML 100 ML IV CONT ×2 (09:04→18:54)
[2023-07-27] MEDS: HEPARIN SODIUM 5,000 UNITS/ML VIAL 3000 UNITS IV PUSH (09:45)
[2023-07-27] MEDS: amLODIPine BESYLATE 5 MG TABLET PO (10:23)
--- NOTE | 2023-07-27 10:57 | WPDMODSED ---
Moderate Sedation Note-Pt Data Patient Data Diagnosis: non ST-elevation [place] chronic kidney disease Present Complaint: chest pain upon admitted, currently asymptomatic Procedure to be performed/Plan: coronary angiography Allergies Allergy/AdvReac Type Severity Reaction Status Date / Time cat dander Allergy Mild Unknown Verified 05/26/23 10:34 mold Allergy Unknown Unknown Verified 05/26/23 10:34 jurdiance Allergy Mild Nausea and Uncoded 05/26/23 10:34 Vomiting Home Medications Medication Instructions Recorded Confirmed Type flecainide 100 mg tablet 200 mg PO Q12H 04/28/19 07/25/23 History furosemide 40 mg tablet 40 mg PO QAM 06/20/20 07/25/23 History semaglutide 1 mg/dose (4 mg/3 mL) 1 mg (0.75 mL) subcut WEEKLY #3 mL 04/14/22 07/25/23 Rx subcutaneous pen injector (Ozempic) amlodipine 5 mg tablet 5 mg PO QAM 04/27/23 07/25/23 History fluticasone 500 mcg-salmeterol 50 2 inh inhalation Q12H 04/27/23 07/25/23 History mcg/dose blistr powdr for inhalation (Advair Diskus) allopurinol 100 mg tablet 100 mg PO QPM 07/25/23 07/25/23 History clobetasol 0.05 % scalp solution 1 applic topical DAILY PRN Dry Skin 07/25/23 07/25/23 History colchicine 0.6 mg tablet 0.6 mg PO .COMPLEX PRN gout 07/25/23 07/25/23 History ezetimibe 10 mg tablet 10 mg PO QAM 07/25/23 07/25/23 History insulin degludec 100 unit/mL (3 30 unit subcut QAM 07/25/23 07/25/23 History mL) subcutaneous pen (Tresiba FlexTouch U-100 insulin) montelukast 10 mg tablet 10 mg PO QPM 07/25/23 07/25/23 History oxybutynin chloride 5 mg tablet 5 mg PO QPM 07/25/23 07/25/23 History valsartan 320 mg tablet 320 mg PO QAM 07/25/23 07/25/23 History Current Medications: Active Medications Acetaminophen (Acetaminophen 325 Mg Tablet) 650 mg PO Q6H PRN PRN Reason: Mild Pain (1-3) or Fever Last Admin: 07/27/23 09:03 Dose: 650 mg Allopurinol (Allopurinol 100 Mg Tablet) 100 mg PO QPM [facility] Last Admin: 07/26/23 17:11 Dose: 100 mg Amlodipine Besylate (Amlodipine Besylate 5 Mg Tablet) 5 mg PO [facility] Last Admin: 07/27/23 10:23 Dose: 5 mg Aspirin (Aspirin 81 Mg Enteric Tablet) 81 mg PO [facility] Last Admin: 07/27/23 09:02 Dose: 81 mg Colchicine (Colchicine 0.6 Mg Tablet) 0.6 mg PO BID PRN PRN Reason: gout FLARES Stop: 07/28/23 18:08 Dextrose (Dextrose 50% 25 Gm/50 Ml Syringe) 12.5 gm IV PUSH PRN PRN; Protocol PRN Reason: Hypoglycemia Ezetimibe (Ezetimibe 10 Mg Tablet) 10 mg PO [facility] Last Admin: 07/27/23 09:02 Dose: 10 mg Flecainide Acetate (Flecainide Acetate 100 Mg Tablet) 100 mg PO Q12HR [facility] Last Admin: 07/27/23 09:02 Dose: 100 mg Furosemide (Furosemide 40 Mg Tablet) 40 mg PO [facility] Last Admin: 07/26/23 10:01 Dose: 40 mg Glucagon (Glucagon For Inj 1 Mg Vial) 1 mg IM PRN PRN; Protocol PRN Reason: Hypoglycemia Glucose (Glucose Oral Gel 15 Gm Of Glucse In 37.5 Gm Tube) 15 gm PO PRN PRN; Protocol PRN Reason: Hypoglycemia Heparin Sodium (Porcine) (Heparin Sodium 5,000 Units/Ml Vial) 4,000 units IV PUSH PRN PRN PRN Reason: aPTT less than 55 seconds Last Admin: 07/26/23 19:09 Dose: 4,000 units Heparin Sodium (Porcine) (Heparin Sodium 5,000 Units/Ml Vial) 3,000 units IV PUSH PRN PRN PRN Reason: aPTT 55 - 70 seconds Last Admin: 07/27/23 09:45 Dose: 3,000 units Heparin Sodium/Dextrose (Heparin Sodium/D5w 100 Units/Ml) 25,000 units in 250 mls @ 15 mls/hr IV CONT .[id number] [facility]; Protocol Last Titration: 07/27/23 09:46 Dose: 1,500 units/hr, 15 mls/hr Dextrose (Dextrose 5% 1,000 Ml) 1,000 mls @ 100 mls/hr IVPB PRN PRN; Protocol PRN Reason: Hypoglycemia Sodium Chloride (Normal Saline Iv) 1,000 mls @ 100 mls/hr IV CONT .Q10H EMILY Last Admin: 07/27/23 09:04 Dose: 100 mls/hr Insulin Aspart (Insulin Aspart (*Bkc) 100 Units/Ml) 2 - 5 units SUB-Q TIDWM EMILY; Protocol Last Admin: 07/27/23 08:54 Dose: Not Given Insulin Aspart (Insulin Aspart (*Bkc) 100 Units/Ml) 1 - 2 units SUB-Q HS EMILY; Protocol Last Admin: 07/25
--- NOTE | 2023-07-27 11:33 | WPDCARDPROC ---
Cardiac Cath Procedure Note Date of procedure:: 07/27/23 Performing physician:: Pankaj Snyder MD Indication:: non ST-elevation [place] Brief clinical history:: this is a 78-year-old lady with coronary disease previous stenting and morbid obesity also diabetes. The patient entered the hospital over the weekend with ischemic chest pain and a moderate troponin rise. Her lab data also demonstrates renal insufficiency with creatinine of 1.9. In this setting follow-up coronary angiography has been recommended. With her chronic kidney disease left ventriculogram will not be injected. Procedure Procedure performed:: Coronary angiography Sedation/Medication given:: fentanyl 50 mg Versed 2 mg case start time 11:05 a.m. case end time 11:26 a.m. sedation provided by Carmella Toth RN, trained observer Access site:: right femoral artery Estimated blood loss:: 20 cc Procedure note:: patient was brought to the cardiac catheterization lab in the postabsorptive state the right femoral was prepared and draped in normal usual fashion. Anesthesia was given with 1% lidocaine infiltrated locally. Using the modified Seldinger technique a 5 Faroese sheath was placed into the right common femoral artery after this selective [id number] coronary angiograms were then carried out. The left ventricle was not entered during this procedure. The left coronary was injected using a standard 5 Faroese FL4 catheter. The right coronary was injected using a standard 5 Faroese JR4 catheter. Following review the cineangiograms the case was terminated patient was taken to the holding area for sheath removal and discussion will be had with the patient regarding obtaining cardiothoracic surgery consult regarding the option of surgical revascularization Findings:: hemodynamics: Central aortic pressure was 128/68. The left main coronary artery is patent the left anterior descending is a large caliber artery proximally and rather small the midportion down to the apex. There is a proximal 50-60% lad stenosis following this the LAD has diffuse luminal irregularities. There is a complex septal perforating branch that has a 90% stenosis. The LAD in the midportion distal to the midportion of the vessel has a somewhat complex 90% stenosis that is in and region with the vessel is rather small. The circumflex is a large caliber vessel the trunk of the circumflex is stented after 1st OM. The trunk of the circumflex in this area is nicely patent. The 1st OM branch prior to the stent has a proximal 95% stenosis this is a small to medium size artery. Distal to the stent there is a more distal circumflex bifurcation with 90% stenosis involving the more distal marginal and the posterior branch of the circumflex. The right coronary artery is large in caliber and dominant to the posterior circulation the right coronary artery has proximal 60% stenosis the right coronary trunk then is remarkable for diffuse luminal irregularities. Distally just prior to the bifurcation there is a 99% stenosis in the right coronary prior to the PDA/ PL bifurcation the PL branches are rather small. Conclusion:: 1. Right coronary dominant circulation with three-vessel coronary artery disease including 50-60% proximal LAD stenosis, more distal 90% complex LAD stenosis, 90% stenosis in a bifurcating septal perforating complex, 95% stenosis in small 1st OM and 90% bifurcation stenosis in the distal circumflex, 99% stenosis in the distal RCA just prior to the RPDA 2. stented segments of the circumflex and right coronary is remain patent Pankaj Snyder MD [facility]
[2023-07-27 11:35] LABS: Activated Clotting Time 196 SEC (74-137)
--- NOTE | 2023-07-27 13:54 | PM.TDS ---
Transfer Discharge Sum: Prov Provider Date of admission: 07/26/23 14:43 Primary care physician: Flaca Huynh MD Admitting clinician: Govind Shea MD Consults: 07/25/23 Consult to Physician Routine Comment: Consulting Provider: Jayson Garcia Reason for consultation: NSTEMI Has provider been notified: Yes Attending physician on discharge: Edinson Sepulveda Discharging clinician: Rivas Michelle Anticipated date of transfer: 07/27/23 Receiving physician/facility: Dr. Rogers, Hospitalist at [facility] DS: Admitting Diagnosis Discharge Date 07/27/2023 Admitting Diagnosis NSTEMI, AFib, type 2 diabetes with stage IV CKD, hypertension DS: Discharge Diagnosis Discharge Diagnosis (1) NSTEMI (non-ST elevated myocardial infarction): Code(s): I21.4 - Non-ST elevation (NSTEMI) myocardial infarction Status: Acute (2) Afib: Qualifiers: Atrial fibrillation type: paroxysmal Qualified Code(s): I48.0 - Paroxysmal atrial fibrillation Code(s): I48.91 - Unspecified atrial fibrillation Status: Acute (3) Type 2 diabetes mellitus with chronic kidney disease: Qualifiers: Diabetes mellitus care home insulin use: with care home use Chronic kidney disease stage: stage 4 (severe) Qualified Code(s): E11.22 - Type 2 diabetes mellitus with diabetic chronic kidney disease; N18.4 - Chronic kidney disease, stage 4 (severe); Z79.4 - terminal computer operator (current) use of insulin Code(s): E11.22 - Type 2 diabetes mellitus with diabetic chronic kidney disease Status: Acute (4) HTN (hypertension): Qualifiers: Hypertension type: primary hypertension Qualified Code(s): I10 - Essential (primary) hypertension Code(s): I10 - Essential (primary) hypertension Status: Acute (5) Chronic kidney disease, stage 4 (severe): Code(s): N18.4 - Chronic kidney disease, stage 4 (severe) Status: Acute (6) CAD (coronary artery disease): Code(s): I25.10 - Atherosclerotic heart disease of [place] coronary artery without angina pectoris Status: Acute Plan Patient to be transferred for CABG evaluation by Cardiothoracic surgery at [facility]. Transfer Discharge Sum: Med Medications Active and Home Medications: Home Medications flecainide 100 mg tablet 200 mg PO Q12H 04/28/19 [History Confirmed 07/25/23] furosemide 40 mg tablet 40 mg PO QAM 06/20/20 [History Confirmed 07/25/23] semaglutide 1 mg/dose (4 mg/3 mL) subcutaneous pen injector (Ozempic) 1 mg (0.75 mL) subcut WEEKLY #3 mL 04/14/22 [Rx Confirmed 07/25/23] amlodipine 5 mg tablet 5 mg PO QAM 04/27/23 [History Confirmed 07/25/23] fluticasone 500 mcg-salmeterol 50 mcg/dose blistr powdr for inhalation (Advair Diskus) 2 inh inhalation Q12H 04/27/23 [History Confirmed 07/25/23] allopurinol 100 mg tablet 100 mg PO QPM 07/25/23 [History Confirmed 07/25/23] clobetasol 0.05 % scalp solution 1 applic topical DAILY PRN Dry Skin 07/25/23 [History Confirmed 07/25/23] colchicine 0.6 mg tablet 0.6 mg PO .COMPLEX PRN gout 07/25/23 [History Confirmed 07/25/23] ezetimibe 10 mg tablet 10 mg PO QAM 07/25/23 [History Confirmed 07/25/23] insulin degludec 100 unit/mL (3 mL) subcutaneous pen (Tresiba FlexTouch U-100 insulin) 30 unit subcut QAM 07/25/23 [History Confirmed 07/25/23] montelukast 10 mg tablet 10 mg PO QPM 07/25/23 [History Confirmed 07/25/23] oxybutynin chloride 5 mg tablet 5 mg PO QPM 07/25/23 [History Confirmed 07/25/23] valsartan 320 mg tablet 320 mg PO QAM 07/25/23 [History Confirmed 07/25/23] Active Medications Acetaminophen (Acetaminophen 325 Mg Tablet) 650 mg PO Q6H PRN PRN Reason: Mild Pain (1-3) or Fever Last Admin: 07/27/23 09:03 Dose: 650 mg Allopurinol (Allopurinol 100 Mg Tablet) 100 mg PO QPM EMILY Last Admin: 07/26/23 17:11 Dose: 100 mg Amlodipine Besylate (Amlodipine Besylate 5 Mg Tablet) 5 mg PO QAM EMILY Last Admin: 07/27/23 10:23 Dose: 5 mg Aspirin
--- NOTE | 2023-07-27 14:37 | PC.NURSE ---
Nurse talked with [facility] transfer center. Gave report on the patient. Transfer center eligibility services representative stated would call back for updates and when a bed becomes available.
[2023-07-27 14:43] LABS: Partial Thromboplastin Time 40.2 SECONDS (22.3-36.8)
[2023-07-27 16:18] LABS: Partial Thromboplastin Time 29.1 SECONDS (22.3-36.8)
[2023-07-27] MEDS: NITROGLYCERIN SL 0.4 MG TABLET SUBLINGUAL (16:45)
--- NOTE | 2023-07-27 16:45 | ECG_ITS ---
Measurements Intervals [place] Rate: 72 P: 87 GA: 222 QRS: 137 QRSD: 121 T: -37 QT: 392 QTc: 430 Interpretive Statements SINUS RHYTHM WITH FIRST DEGREE AV BLOCK INCOMPLETE RIGHT BUNDLE BRANCH BLOCK INFERIOR ST ELEVATION MYOCARDIAL INFARCT- ACUTE WITH RECIPROCAL ST DEPRESSION IN HIGH LATERAL LEADS BASELINE WANDER- I, III ABNORMAL ECG COMPARED TO ECG 07/25/2023 16:01:[address] ELEVATION NOW PRESENT Electronically Signed On 07-27-2023 16:59:22 CREW SUPERVISOR by Tavo Cristobal D.O.
--- NOTE | 2023-07-27 16:55 | SUR.PHASEII ---
MD now present assessing pt. Will return to slab polisher due to continued chest pain and ekg changes.
[2023-07-27 17:47] LABS: Activated Clotting Time 120 SEC (74-137)
[2023-07-27 17:47] LABS: Activated Clotting Time 152 SEC (74-137)
[2023-07-27 17:47] LABS: Activated Clotting Time 169 SEC (74-137)
--- NOTE | 2023-07-27 17:51 | WPDCARDPROC ---
Cardiac Cath Procedure Note Date of procedure:: 07/27/23 Performing physician:: Pankaj Snyder MD Indication:: inferior ST-elevation Brief clinical history:: this is a 78-year-old woman who underwent diagnostic catheterization earlier today and plans were in place to transfer her to a higher level of care to consider surgical revascularization. Patient's comorbidities are morbid obesity and diabetes as well as a previous history of atrial fibrillation. She developed significant chest pain this evening while still in this hospital's laborer wrecking and salvaging holding area and follow-up ECG demonstrates obvious inferior ST-elevation [place]. Angiographic clear earlier this morning she did have a subtotal distal RCA lesion which presumably is the culprit for this Procedure Procedure performed:: Emergency PCI (KELSEY) of distal RCA Sedation/Medication given:: no sedation Access site:: right femoral artery Estimated blood loss:: minimal Procedure note:: patient was brought back to the cardiac laborer wrecking and salvaging emergently with chest pain and inferior ST elevation. The right femoral triangle was prepped and draped in the sterile fashion once again. 1% lidocaine was given locally. Just above the a puncture from this morning the right common femoral artery was punctured again and a 6 Monegasque vascular sheath was placed. After this I advanced a 6 Monegasque WRP guiding catheter into the aortic root and engaged the right coronary artery. Follow-up angiography demonstrated subtotal occlusion of the distal RCA at the site of the 99% stenosis noted earlier this morning. There was now CHAVEZ 1 flow in the vessel. The patient received 180 mg of Brilinta as she was being prepared for the procedure and received bolus and infusion of Angiomax during this PCI for procedural anticoagulation. I used a 0.014 BMW coronary guidewire to wire the right coronary and traverse the distal lesion advancing the wire into the RPDA. The RPL branches are just prior to this high-grade lesion but the RPL system is quite small. I then pre-dilated the area using a 3 x 20 mm Panterra balloon at nominal pressure. Following this there was nice patency of the lesion with CHAVEZ 3 flow back into the distal RCA. I then advanced a 3.5 x 26 mm Orsiro stent across the high-grade lesion into the origin of the RPDA. This was then deployed at nominal pressure for 30 seconds. The distal RCA trunk at the proximal aspect of the stent was clearly under dilated because of the large caliber discrepancy. I then used a 4.0 x 15 mm balloon making to inflations to deploy this segment of the stent at 14 atmospheres. At the end of this the distal RCA lesion was widely patent with no significant residual stenosis stress disruption dissection or distal embolization there was CHAVEZ 3 flow in the vessel and the patient was asymptomatic of her chest pain. Findings:: As above Conclusion:: successful uncomplicated emergency PCI deploying 3.5 x 26 mm drug-eluting stent in the distal RCA into the RPDA and then post dilating the proximal segment with a 4.0 mm noncompliant balloon at 14 atmospheres with a nice angiographic result and muslim of CHAVEZ 3 flow into the distal RCA. Pankaj Snyder MD [facility]
--- NOTE | 2023-07-27 17:52 | PC.NURSE ---
Patient left the floor to go to labour market economist at 1050. Patient being transferred to ICU. Report given to receiving nurse Ngozi MITTAL at [phone].
--- NOTE | 2023-07-27 18:00 | PC.NURSE ---
received patient from calibration laboratory technician; sheath intact; dressing dry and intact; no chest pain
[2023-07-27 18:24] LABS: Glucose Point of Care 124 mg/dl (65-105)
--- NOTE | 2023-07-27 19:30 | PC.NURSE ---
[facility] transfer center has bed available, Dr. Snyder called, okay to cancel patient transfer for now to [facility].
[2023-07-27] MEDS: TICAGRELOR 90 MG TABLET PO (21:42)
[2023-07-27] MEDS: allopurinoL 100 MG TABLET PO (21:43)
[2023-07-27] MEDS: MONTELUKAST SODIUM 10 MG TABLET PO (21:43)
[2023-07-27] MEDS: MORPHINE SULFATE (*CRX) 2 MG/ML INJ IV PUSH (21:50)
[2023-07-27 21:56] LABS: Glucose Point of Care 138 mg/dl (65-105)
[2023-07-28] VITALS (31 sets, daily range): BP systolic 87–132; BP diastolic 39–79; PULSE 65–98; RESP 16–26; TEMP 37.6–38.9; O2SAT 94–100
[2023-07-28] MEDS: MORPHINE SULFATE (*CRX) 2 MG/ML INJ IV PUSH ×2 (02:56→23:12)
[2023-07-28] MEDS: SODIUM CHLORIDE 0.9% IV 1,000 ML 100 ML IV CONT (03:40)
[2023-07-28 04:54] LABS: Basophils Percent Auto 0.2 % (0.2-1.2); Eosinophils Absolute Auto 0.2 K/mm3 (0-0.3); Eosinophils Percent Auto 1.8 % (0-4.4); Hematocrit 38.6 % (37.0-47.0); Hemoglobin 12.4 g/dL (12.0-15.0); Immature Granulocyte Absolute 0.03 K/mm3 (0.00-0.031); Immature Granulocyte Percent A 0.4 % (0-0.5); Lymphocytes Absolute Auto 0.76 K/mm3 (0.9-3.2); Mean Corpuscular HGB Conc 32.1 g/dl (32-36); Mean Corpuscular Hemoglobin 29.9 pg (26-34); Mean Platelet Volume 10.8 fl (7.4-10.4); Monocytes Absolute Auto 0.5 K/mm3 (0.1-0.6); Monocytes Percent Auto 5.4 % (2.6-8.5); Neutrophils Absolute Auto 7.1 K/mm3 (1.3-6.7); Neutrophils Percent Auto 83.2 % (45.5-73.1); Platelet Count Result 249 k/mm3 (150-375); Red Blood Count 4.15 M/mm3 (4.2-5.4); Red Cell Distribution Width 14.5 % (11.5-14.5); White Blood Count 8.5 K/mm3 (4.5-10.0)
[2023-07-28 05:29] LABS: Alanine Aminotransferase 17 U/L (6-35); Albumin Level 3.5 g/dL (3.5-5.1); Alkaline Phosphatase 61 U/L (38-126); Anion Gap 8 mmol/L (8-16); Aspartate Amino Transferase 35 U/L (14-36); Bilirubin,Total 0.9 mg/dL (0.2-1.3); Blood Urea Nitrogen 28 mg/dL (7-17); Calcium 8.5 mg/dL (8.4-10.2); Carbon Dioxide 22 mmol/L (22-30); Chloride 107 mmol/L (98-107); Estimated CRCL calculation 38 ml/min; Estimated Glomerular Filt Rate 40; Glucose 178 mg/dL (65-110); Magnesium 1.8 mg/dL (1.6-2.3); Potassium 3.8 mmol/L (3.4-5.0); Sodium 137 mmol/L (137-145)
[2023-07-28] MEDS: ASPIRIN 81 MG CHEWABLE TABLET PO (08:12)
[2023-07-28] MEDS: INSULIN GLARGINE (*BKC) 100 UNITS/ML 30 UNITS SUB-Q (08:12)
[2023-07-28] MEDS: PANTOPRAZOLE SODIUM IV 40 MG VIAL IV PUSH (08:12)
[2023-07-28] MEDS: ROSUVASTATIN 10 MG TABLET 20 MG PO (08:12)
[2023-07-28] MEDS: EZETIMIBE 10 MG TABLET PO (08:13)
[2023-07-28] MEDS: TICAGRELOR 90 MG TABLET PO ×2 (08:13→20:01)
[2023-07-28] MEDS: ASPIRIN 81 MG ENTERIC TABLET PO (08:13)
[2023-07-28] MEDS: amLODIPine BESYLATE 5 MG TABLET PO (08:13)
[2023-07-28] MEDS: METOPROLOL SUCCINATE EXT REL 50 MG TABCR PO (08:13)
[2023-07-28 08:15] LABS: Glucose Point of Care 123 mg/dl (65-105)
[2023-07-28] MEDS: FLUTICASONE/SALMETEROL 230-21 MCG INHALER 1 PUFF 2 PUFF INHALATION ×2 (08:22→19:44)
[2023-07-28 08:35] LABS: Appearance Urine Clear (Clear); Bacteria Urine None Seen /hpf; Bilirubin Urine Negative (Negative); Blood Urine 1+ (Negative); Color Urine Yellow (Yellow); Glucose Urine UA Negative (Negative); Ketones Urine Negative (Negative); Leukocyte Esterase Ur 1+ LEU/UL (Negative); Nitrate Urine Negative (Negative); Non Pathogenic Casts 0-2; Protein Urine Negative (Negative); Specific Grav Ur 1.016 (1.001-1.035); Squamous Epithelial Cell Urine None seen /hpf (Few); Urobilinogen Urine 0.2 mg/dL (<2.0)
[2023-07-28 08:37] LABS: Add Urine Microscopic? YES
[2023-07-28] MEDS: VALSARTAN 160 MG TABLET 320 MG PO (08:42)
--- NOTE | 2023-07-28 09:18 | WPDCNINT ---
Assessment and Plan Assessment and plan (1) NSTEMI (non-ST elevated myocardial infarction): Code(s): I21.4 - Non-ST elevation (NSTEMI) myocardial infarction Status: Acute Assessment and Plan: Patient presented on 07/25/2023 with chest pain radiating to the left arm, shortness of breath, diaphoresis. Elevated troponin levels -Patient was initially taken to the cardiac laboratory inspector which she was found to have multivessel disease including 50-60% proximal LAD stenosis, more distal 90% complex LAD stenosis. 90% stenosis in the bifurcating septal perforating complex a 95% stenosis in small 1st OM and 90% bifurcation stenosis in the distal circumflex. 99% stenosis in the RCA just prior to the RPDA. No intervention was done at that time, patient was being transferred to [facility] for CT surgery evaluation. -Once patient was transferred to the ICU, she continued to have ongoing chest pain and the EKG showed inferior ST-elevation, patient was taken back to the cardiac laboratory inspector on 07/27/2023 status post PTCA/PCI with KELSEY x1 to RCA to the RPDA. Patient was then transferred to the ICU for further management -patient remains chest pain-free this morning, continue aspirin, rosuvastatin, Brilinta, valsartan (2) Fever: Code(s): R50.9 - Fever, unspecified Status: Acute Assessment and Plan: Patient spike fevers overnight with a T-max of 101.9? this morning -UA reflective of UTI -chest x-ray has been ordered -07/27: Blood cultures ordered -07/27: Urine cultures have been ordered -start patient on ceftriaxone 07/27 (3) UTI (urinary tract infection): Code(s): N39.0 - Urinary tract infection, site not specified Status: Acute Assessment and Plan: Continue antibiotics as above -urine cultures have been ordered (4) Afib: Qualifiers: Atrial fibrillation type: paroxysmal Qualified Code(s): I48.0 - Paroxysmal atrial fibrillation Code(s): I48.91 - Unspecified atrial fibrillation Status: Acute Assessment and Plan: Patient with history of AFib currently in sinus rhythm, rate controlled -discussed with Cardiology, will hold flecainide with history of coronary artery disease and recent NSTEMI/STEMI -not on any anticoagulation due to history of GI bleed -continue to monitor (5) Chronic kidney disease, stage 4 (severe): Code(s): N18.4 - Chronic kidney disease, stage 4 (severe) Status: Acute Assessment and Plan: History of stage 4 kidney disease -urine output has been adequate after Umaña insertion -creatinine trending down 1.30 this morning -continue to monitor renal function, electrolytes and urine output (6) Type 2 diabetes mellitus with chronic kidney disease: Qualifiers: Diabetes mellitus chcf insulin use: with chcf use Chronic kidney disease stage: stage 4 (severe) Qualified Code(s): E11.22 - Type 2 diabetes mellitus with diabetic chronic kidney disease; N18.4 - Chronic kidney disease, stage 4 (severe); Z79.4 - snf (current) use of insulin Code(s): E11.22 - Type 2 diabetes mellitus with diabetic chronic kidney disease Status: Acute Assessment and Plan: Continue Accu-Cheks and sliding scale insulin -continue Lantus -hemoglobin A1c was 7.4 on 06/12/2022, will recheck Plan DVT prophylaxis: SCD Stress ulcer prophylaxis: Not indicated Nutrition: Heart healthy diet Code Status: Full code Critical Care Time Spent: 48 minutes Discussed with cardiology Okay to transfer out of the ICU Due to a high probability of clinically significant, life threatening deterioration, the patient required my highest level of preparedness to intervene emergently and I personally spent this critical care time directly and personally managing the patient. This critical care time included obtaining a history; examining the patient; pulse oximetry; ordering and review of studies; arranging urgent treatment with ines
--- NOTE | 2023-07-28 09:39 | PM.PNCARD ---
Progress Note: A&P Assessment and Plan (1) NSTEMI (non-ST elevated myocardial infarction): Code(s): I21.4 - Non-ST elevation (NSTEMI) myocardial infarction Status: Acute Assessment and Plan: Cardiac catheterization 07/27/2022 showed: Right coronary dominant circulation with three-vessel coronary artery disease including 50-60% proximal LAD stenosis, more distal 90% complex LAD stenosis, 90% stenosis in a bifurcating septal perforating complex, 95% stenosis in small 1st OM and 90% bifurcation stenosis in the distal circumflex, 99% stenosis in the distal RCA just prior to the RPDA. Stented segments of the circumflex and right coronary is remain patent. Transfer had been arranged to [facility] for CABG evaluation. However, late yesterday afternoon, patient developed chest pain and EKG showed an inferior STEMI, therefore, she underwent emergent catheterization. Underwent successful uncomplicated emergency PCI deploying 3.5mm x 26 mm drug-eluting stent in the distal RCA into the RPDA and then post dilating the proximal segment with a 4.0 mm noncompliant balloon at 14 atmospheres with a nice angiographic result and gnosticist of CHAVEZ 3 flow into the distal RCA. Transfer to [facility] canceled. Continue ASA 81mg once daily. Continue Brilinta 90mg BID. Continue statin. Continue Toprol. Plan to address non-culprit lesions as an outpatient. (2) Fever: Code(s): R50.9 - Fever, unspecified Status: Acute Assessment and Plan: Having fevers this morning. Undergoing infectious workup as per ICU team. (3) HTN (hypertension): Qualifiers: Hypertension type: primary hypertension Qualified Code(s): I10 - Essential (primary) hypertension Code(s): I10 - Essential (primary) hypertension Status: Acute Assessment and Plan: Generally at goal (4) Chronic kidney disease, stage 4 (severe): Code(s): N18.4 - Chronic kidney disease, stage 4 (severe) Status: Acute Assessment and Plan: Follow renal function closely (5) Type 2 diabetes mellitus with hyperglycemia: Qualifiers: Diabetes mellitus moth exterminator insulin use: with mcc use Qualified Code(s): E11.65 - Type 2 diabetes mellitus with hyperglycemia; Z79.4 - MCC (current) use of insulin Code(s): E11.65 - Type 2 diabetes mellitus with hyperglycemia Status: Acute Assessment and Plan: Management as per primary team. (6) Afib: Qualifiers: Atrial fibrillation type: paroxysmal Qualified Code(s): I48.0 - Paroxysmal atrial fibrillation Code(s): I48.91 - Unspecified atrial fibrillation Status: Acute Assessment and Plan: Flecainide was discontinued due to her coronary artery disease. Continue Toprol. Not on anticoagulation as an outpatient due to history of GI bleed. Plan Okay to transfer out of ICU today. Recommendations and plan discussed with Hospitalist. Subjective Date/time seen: 07/28/23 09:39 Interval history: Reason for visit: NSTEMI HPI: Patient is a 78-year-old female patient of [employer] who has a history of CAD.? She has had previous stent placement to the circumflex and RCA dating back to 2001.? Most recent angiogram showed a tiny 95% stenosis of a high obtuse marginal branch and [id number] disease elsewhere and medical management was pursued.? She has had a history of GI bleeding and is not on anticoagulation despite her atrial fibrillation history.? She was helping her yesterday when she developed acute onset of chest pain which was severe and radiated down her left arm.? She had associated shortness of breath and diaphoresis.? Symptoms started about 8:00 a.m..? It did resolve after a few minutes of chewing an aspirin.? Because of the severity of the pain though she did call 911 came to the hospital.? She did rule in for myocardial infarction.? She has had 2 other episodes of chest pain while on the floor.? I started
[2023-07-28] MEDS: ACETAMINOPHEN 325 MG TABLET 650 MG PO ×2 (10:50→20:01)
[2023-07-28] MEDS: cefTRIAXone 2 GM/NS 100 ML 2 GM/100 ML BAG IVPB (10:50)
[2023-07-28 11:06] LABS: Hemoglobin A1C 6.6 % (<5.7)
[2023-07-28 11:33] LABS: Glucose Point of Care 216 mg/dl (65-105)
[2023-07-28] MEDS: INSULIN ASPART (*BKC) 100 UNITS/ML SUB-Q (12:10)
--- NOTE | 2023-07-28 13:04 | PM.CNGS ---
Assessment and Plan Assessment and plan (1) Fever: Code(s): R50.9 - Fever, unspecified Status: Acute Assessment and Plan: We have been consulted for the concern of a possible left arm abscess in the setting of new onset of fevers overnight. Wound care had seen the patient earlier today and expressed purulent drainage from a tiny wound in the left AC area where she previously had an infiltrated IV removed yesterday. On my exam, there is no obvious purulent drainage, and no induration or fluctuance that would suggest an obvious superficial abscess that would need drained. Will order a soft tissue ultrasound to further evaluate for a possible abscess. If this is negative, then we would recommend to continue with IV antibiotics and monitor. Wound cultures obtained today and antibiotics should be tailored to her cultures. If there is any significant abscess on ultrasound, then she would need incision and drainage which was discussed with the patient. (2) UTI (urinary tract infection): Code(s): N39.0 - Urinary tract infection, site not specified Status: Acute Assessment and Plan: Could be a source of her fever. UA suggests possible UTI, urine cx pending, started on Rocephin IV today. (3) ST elevation (STEMI) myocardial infarction: Code(s): I21.3 - ST elevation (STEMI) myocardial infarction of unspecified site Status: Acute Assessment and Plan: S/p cardiac catheterization 07/27/2022 with successful uncomplicated emergency PCI deploying drug-eluting stent in the distal RCA and post balloon dilation. Currently on ticagrelor and baby ASA. (4) CAD (coronary artery disease): Code(s): I25.10 - Atherosclerotic heart disease of [place] coronary artery without angina pectoris Status: Acute (5) Afib: Qualifiers: Atrial fibrillation type: paroxysmal Qualified Code(s): I48.0 - Paroxysmal atrial fibrillation Code(s): I48.91 - Unspecified atrial fibrillation Status: Acute (6) Type 2 diabetes mellitus with chronic kidney disease: Qualifiers: Diabetes mellitus intermediate card tender insulin use: with mcc use Chronic kidney disease stage: stage 4 (severe) Qualified Code(s): E11.22 - Type 2 diabetes mellitus with diabetic chronic kidney disease; N18.4 - Chronic kidney disease, stage 4 (severe); Z79.4 - FDC (current) use of insulin Code(s): E11.22 - Type 2 diabetes mellitus with diabetic chronic kidney disease Status: Acute (7) HTN (hypertension): Qualifiers: Hypertension type: primary hypertension Qualified Code(s): I10 - Essential (primary) hypertension Code(s): I10 - Essential (primary) hypertension Status: Acute Plan I have discussed the patient's case and plan of care with Dr. Parra. Thank you for allowing us to see the patient in consultation and we will continue to follow along with you. History of Present Illness Consult details Consult date: 07/28/23 Reason for consult: other (Possible left arm abscess) Requesting physician: Javad Oneal MD Narrative: This is a 78 year old woman who presented to the ER 3 days ago for evaluation of chest pain. She was admitted and Cardiology consulted. She underwent diagnostic cardiac catheterization yesterday with findings of multivessel coronary artery disease with recommendations to transfer [facility]. While in the molder labels after the procedure, she developed acute onset of chest pain and had another EKG that showed an inferior STEMI and underwent emergency catheterization with successful uncomplicated PCI deploying a drug-eluting stent and post balloon dilation. She is on ticagrelor and still in the ICU. Overnight, she has developed fevers, which she is undergoing workup for source of her fever. Temperature max was 102F. Blood cultures were sent. UA suggests possible UTI. Urine culture pending. She was started on IV Rocephin. She also was found to have redness
[2023-07-28] MEDS: polyethylene glycoL 3350 17 GM POWD.PACK PO (14:12)
[2023-07-28] MEDS: oxyBUTYnin CHLORIDE 5 MG TABLET PO (17:12)
[2023-07-28] MEDS: MONTELUKAST SODIUM 10 MG TABLET PO (17:12)
[2023-07-28] MEDS: allopurinoL 100 MG TABLET PO (17:12)
--- NOTE | 2023-07-28 17:34 | PM.IMPN ---
Progress Note: A&P Assessment and Plan (1) NSTEMI (non-ST elevated myocardial infarction): Code(s): I21.4 - Non-ST elevation (NSTEMI) myocardial infarction Status: Acute Assessment and Plan: Patient has symptoms consistent with a non ST-elevation myocardial infarction. Started her on a heparin drip for which she remains. Nitroglycerin paste 1 in Q 6 hours to be continued. Aspirin 81 mg p.o. daily. Continue Zetia, amlodipine, valsartan. She is not on a statin per patient wishes and side effects. 2D echocardiogram Doppler will be ordered and reviewed. See cardiology note - Cardiac catheterization 07/27/2022 showed: Right coronary dominant circulation with three-vessel coronary artery disease including 50-60% proximal LAD stenosis, more distal 90% complex LAD stenosis, 90% stenosis in a bifurcating septal perforating complex, 95% stenosis in small 1st OM and 90% bifurcation stenosis in the distal circumflex, 99% stenosis in the distal RCA just prior to the RPDA. Stented segments of the circumflex and right coronary is remain patent. Transfer had been arranged to [facility] for CABG evaluation. However, late yesterday afternoon, patient developed chest pain and EKG showed an inferior STEMI, therefore, she underwent emergent catheterization. Underwent successful uncomplicated emergency PCI deploying 3.5mm x 26 mm drug-eluting stent in the distal RCA into the RPDA and then post dilating the proximal segment with a 4.0 mm noncompliant balloon at 14 atmospheres with a nice angiographic result and pentecostalism of CHAVEZ 3 flow into the distal RCA. (2) Afib: Qualifiers: Atrial fibrillation type: paroxysmal Qualified Code(s): I48.0 - Paroxysmal atrial fibrillation Code(s): I48.91 - Unspecified atrial fibrillation Status: Acute Assessment and Plan: She is on improper dose of flecainide per medical reconciliation. Will reduce her flecainide to 100 mg p.o. q.12 hours. Given her coronary disease history, would like to transition off of flecainide completely. (3) Type 2 diabetes mellitus with chronic kidney disease: Qualifiers: Diabetes mellitus long lines operator insulin use: with skilled nursing use Chronic kidney disease stage: stage 4 (severe) Qualified Code(s): E11.22 - Type 2 diabetes mellitus with diabetic chronic kidney disease; N18.4 - Chronic kidney disease, stage 4 (severe); Z79.4 - skilled nursing (current) use of insulin Code(s): E11.22 - Type 2 diabetes mellitus with diabetic chronic kidney disease Status: Acute Assessment and Plan: - hypoglycemia protocol - POC blood glucose ACHS - home medication resumed/held -Tresiba continued, Ozempic held (NF). Injection day for Ozempic is on Tuesdays. - correction regimen ordered - low/high dose TIDWM and HS - A1C 7.4% in 05/2022 (4) HTN (hypertension): Qualifiers: Hypertension type: primary hypertension Qualified Code(s): I10 - Essential (primary) hypertension Code(s): I10 - Essential (primary) hypertension Status: Acute Assessment and Plan: Generally at goal (5) Chronic kidney disease, stage 4 (severe): Code(s): N18.4 - Chronic kidney disease, stage 4 (severe) Status: Acute Assessment and Plan: off lasix for now order BMP daily (6) CAD (coronary artery disease): Code(s): I25.10 - Atherosclerotic heart disease of [place] coronary artery without angina pectoris Status: Acute Assessment and Plan: Previous stents to the circumflex and RCA. Plan Home Meds/Chronic Conditions - HLD: continue Zetia - asthma: Continue Advair, montelukast - gout: Continue allopurinol, colchicine p.r.n. Diet: heart healthy GI Prophylaxis: pantoprazole IVP DVT Prophylaxis: heparin gtt Lines: peripheral Code Status: Full Code Time Spent With Patient Time with patient: 25 - 35 minutes Subjective Date/time seen: 07/28/23 17:34 Interval history: Patient was adm
[2023-07-28 17:57] LABS: Glucose Point of Care 118 mg/dl (65-105)
[2023-07-28 20:09] LABS: Glucose Point of Care 148 mg/dl (65-105)
[2023-07-29] VITALS (29 sets, daily range): BP systolic 97–116; BP diastolic 54–77; PULSE 65–76; RESP 16–22; TEMP 37.7–39.4; O2SAT 94–100
[2023-07-29] MEDS: ACETAMINOPHEN 325 MG TABLET 650 MG PO ×3 (03:39→17:33)
[2023-07-29] MEDS: MORPHINE SULFATE (*CRX) 2 MG/ML INJ IV PUSH ×4 (03:40→21:41)
[2023-07-29 04:14] LABS: Basophils Percent Auto 0.2 % (0.2-1.2); Eosinophils Absolute Auto 0.5 K/mm3 (0-0.3); Eosinophils Percent Auto 3.8 % (0-4.4); Hematocrit 36.9 % (37.0-47.0); Hemoglobin 11.6 g/dL (12.0-15.0); Immature Granulocyte Absolute 0.07 K/mm3 (0.00-0.031); Immature Granulocyte Percent A 0.6 % (0-0.5); Lymphocytes Absolute Auto 1.35 K/mm3 (0.9-3.2); Lymphocytes Percent Auto 11.1 % (18.3-44.2); Mean Corpuscular HGB Conc 31.4 g/dl (32-36); Mean Corpuscular Hemoglobin 29.6 pg (26-34); Mean Corpuscular Volume 94.1 fl (80-100); Mean Platelet Volume 10.9 fl (7.4-10.4); Monocytes Absolute Auto 1.1 K/mm3 (0.1-0.6); Monocytes Percent Auto 9.2 % (2.6-8.5); Neutrophils Absolute Auto 9.1 K/mm3 (1.3-6.7); Neutrophils Percent Auto 75.1 % (45.5-73.1); Platelet Count Result 246 k/mm3 (150-375); Red Blood Count 3.92 M/mm3 (4.2-5.4); Red Cell Distribution Width 14.5 % (11.5-14.5); White Blood Count 12.1 K/mm3 (4.5-10.0)
[2023-07-29 04:25] LABS: Alanine Aminotransferase 17 U/L (6-35); Albumin Level 3.5 g/dL (3.5-5.1); Alkaline Phosphatase 64 U/L (38-126); Anion Gap 6 mmol/L (8-16); Aspartate Amino Transferase 25 U/L (14-36); Bilirubin,Total 0.7 mg/dL (0.2-1.3); Blood Urea Nitrogen 30 mg/dL (7-17); Calcium 8.7 mg/dL (8.4-10.2); Carbon Dioxide 23 mmol/L (22-30); Chloride 105 mmol/L (98-107); Estimated CRCL calculation 31 ml/min; Estimated Glomerular Filt Rate 31; Glucose 161 mg/dL (65-110); Magnesium 1.8 mg/dL (1.6-2.3); Phosphorus 3.2 mg/dL (2.5-4.5); Potassium 4.2 mmol/L (3.4-5.0); Sodium 134 mmol/L (137-145)
[2023-07-29 07:53] LABS: Glucose Point of Care 135 mg/dl (65-105)
[2023-07-29] MEDS: ROSUVASTATIN 10 MG TABLET 20 MG PO (07:59)
[2023-07-29] MEDS: ASPIRIN 81 MG CHEWABLE TABLET PO (08:00)
[2023-07-29] MEDS: TICAGRELOR 90 MG TABLET PO ×2 (08:00→20:51)
[2023-07-29] MEDS: cefTRIAXone 2 GM/NS 100 ML 2 GM/100 ML BAG IVPB (08:01)
[2023-07-29] MEDS: EZETIMIBE 10 MG TABLET PO (08:01)
[2023-07-29] MEDS: PANTOPRAZOLE SODIUM IV 40 MG VIAL IV PUSH (08:01)
[2023-07-29] MEDS: VALSARTAN 160 MG TABLET 320 MG PO (08:01)
[2023-07-29] MEDS: ASPIRIN 81 MG ENTERIC TABLET PO (08:01)
[2023-07-29] MEDS: METOPROLOL SUCCINATE EXT REL 50 MG TABCR PO (08:02)
[2023-07-29] MEDS: amLODIPine BESYLATE 5 MG TABLET PO (08:02)
[2023-07-29] MEDS: INSULIN GLARGINE (*BKC) 100 UNITS/ML 30 UNITS SUB-Q (08:50)
[2023-07-29] MEDS: FLUTICASONE/SALMETEROL 230-21 MCG INHALER 1 PUFF 2 PUFF INHALATION ×2 (09:07→20:36)
--- NOTE | 2023-07-29 09:45 | PHAR ---
The patient's home med of Colchicine 0.6mg has been verified.
--- NOTE | 2023-07-29 10:02 | PM.PNCARD ---
Progress Note: A&P Assessment and Plan (1) NSTEMI (non-ST elevated myocardial infarction): Code(s): I21.4 - Non-ST elevation (NSTEMI) myocardial infarction Status: Acute Assessment and Plan: Cardiac catheterization 07/27/2022 showed: Right coronary dominant circulation with three-vessel coronary artery disease including 50-60% proximal LAD stenosis, more distal 90% complex LAD stenosis, 90% stenosis in a bifurcating septal perforating complex, 95% stenosis in small 1st OM and 90% bifurcation stenosis in the distal circumflex, 99% stenosis in the distal RCA just prior to the RPDA. Stented segments of the circumflex and right coronary is remain patent. Transfer had been arranged to [facility] for CABG evaluation. However, late yesterday afternoon, patient developed chest pain and EKG showed an inferior STEMI, therefore, she underwent emergent catheterization. Underwent successful uncomplicated emergency PCI deploying 3.5mm x 26 mm drug-eluting stent in the distal RCA into the RPDA and then post dilating the proximal segment with a 4.0 mm noncompliant balloon at 14 atmospheres with a nice angiographic result and orthodox of CHAVEZ 3 flow into the distal RCA. Continue ASA 81mg once daily. Continue Brilinta 90mg BID. Continue statin. Continue Toprol. Plan to address non-culprit lesions as an outpatient. (2) Fever: Code(s): R50.9 - Fever, unspecified Status: Acute Assessment and Plan: Having fevers this morning. Undergoing infectious workup as per ICU team. (3) HTN (hypertension): Qualifiers: Hypertension type: primary hypertension Qualified Code(s): I10 - Essential (primary) hypertension Code(s): I10 - Essential (primary) hypertension Status: Acute Assessment and Plan: Generally at goal (4) Chronic kidney disease, stage 4 (severe): Code(s): N18.4 - Chronic kidney disease, stage 4 (severe) Status: Acute Assessment and Plan: Follow renal function closely (5) Type 2 diabetes mellitus with hyperglycemia: Qualifiers: Diabetes mellitus nursing home insulin use: with superintendent marine oil terminal use Qualified Code(s): E11.65 - Type 2 diabetes mellitus with hyperglycemia; Z79.4 - long term care social worker (current) use of insulin Code(s): E11.65 - Type 2 diabetes mellitus with hyperglycemia Status: Acute Assessment and Plan: Management as per primary team. (6) Afib: Qualifiers: Atrial fibrillation type: paroxysmal Qualified Code(s): I48.0 - Paroxysmal atrial fibrillation Code(s): I48.91 - Unspecified atrial fibrillation Status: Acute Assessment and Plan: Flecainide was discontinued due to her coronary artery disease. Continue Toprol. Not on anticoagulation as an outpatient due to history of GI bleed. Subjective Date/time seen: 07/29/23 10:02 Interval history: Reason for visit: NSTEMI HPI: Patient is a 78-year-old female patient of [employer] who has a history of CAD.? She has had previous stent placement to the circumflex and RCA dating back to 2001.? Most recent angiogram showed a tiny 95% stenosis of a high obtuse marginal branch and vtjv-tz-dgggocje disease elsewhere and medical management was pursued.? She has had a history of GI bleeding and is not on anticoagulation despite her atrial fibrillation history.? She was helping her yesterday when she developed acute onset of chest pain which was severe and radiated down her left arm.? She had associated shortness of breath and diaphoresis.? Symptoms started about 8:00 a.m..? It did resolve after a few minutes of chewing an aspirin.? Because of the severity of the pain though she did call 911 came to the hospital.? She did rule in for myocardial infarction.? She has had 2 other episodes of chest pain while on the floor.? I started her on nitroglycerin paste yesterday and since that time her chest pain has not recurred.? She has had little bit of intermittent chest
--- NOTE | 2023-07-29 10:17 | PM.PNGS ---
Progress Note: A&P Assessment and Plan (1) Fever: Code(s): R50.9 - Fever, unspecified Status: Acute Assessment and Plan: Fevers continue with unclear etiology. Left arm cellulitis clinically improved with only a tiny small draining abscess noted on soft tissue US along side a vessel demonstrating findings suspicious for thrombophlebitis. Blood cx NGTD. Wound cultures from left arm growing gram positive cocci in clusters, still pending. Urine culture pending. Discussed the case with the Hospitalist and recommended broadening her IV antibiotics. (2) Abscess of left arm: Code(s): L02.414 - Cutaneous abscess of left upper limb Status: Acute Assessment and Plan: Left arm soft tissue ultrasound showed mild cellulitis surrounding a tiny 1.6 x 0.6 x 0.3 cm likely draining abscess in the subcutaneous fat at the left antecubital fossa along side a vessel demonstrating thickened wall suspicious for thrombophlebitis. This area was extensively expressed yesterday with purulent drainage. No induration or fluctuance today to suggest the need for I&D, and her overall cellulitis improved today. It would be surprising that her left arm cellulitis and tiny abscess would be the cause of her persistent fevers just given the appearance today. Discussed this with the Hospitalist and also recommended broadening her IV antibiotics to provider better coverage, such as adding Vancomycin or switching her antibiotics. The Hospitalist stated they will make changes. Will continue to follow the wound cultures and clinically monitor in case she were to need any surgical intervention. (3) Superficial thrombophlebitis of arm: Code(s): I80.8 - Phlebitis and thrombophlebitis of other sites Status: Acute Assessment and Plan: Noted on US, which would be associated with previously removed peripheral IV. Will initiate warm compresses. Unable to use NSAIDs. Will continue to monitor. (4) UTI (urinary tract infection): Code(s): N39.0 - Urinary tract infection, site not specified Status: Acute Assessment and Plan: Continue IV antibiotics per primary team, urine cx pending (5) ST elevation (STEMI) myocardial infarction: Code(s): I21.3 - ST elevation (STEMI) myocardial infarction of unspecified site Status: Acute Plan I have discussed the patient's case and plan of care with Dr. Parra. Subjective Subjective Date/Time Seen: 03/06/24 10:17 Patient reports: no new complaints and fever Interval history: Patient seen in the ICU again today as IMU overflow. She still had a fever through the night with tmax of 101.7F last night and temp at 100.2F this morning. She fells like her left arm feels and looks better. She reports the swelling and redness is better. The AC area is not painful unless she bends her arm as it is somewhat tender. Exam Const: General: comfortable and no acute distress Orientation/consciousness: patient oriented x3 Skin: Other: Left antecubital area with erythema significantly improved, still a small less than 0.5 cm open wound in the AC with no purulent drainage, no induration, and no fluctuance. Unable to express any significant purulent drainage on exam. Objective Data Vital Signs Vital Signs: Vital Signs - 24 hr 07/28/23 10:50 07/28/23 12:00 07/28/23 12:00 Temperature 101.7 F H 101.4 F H Pulse Rate 75 Respiratory Rate 22 H Blood Pressure Pulse Oximetry 94 Oxygen Delivery Room Air Oxygen Flow Rate 07/28/23 12:00 07/28/23 11:50 07/28/23 12:54 Temperature 101.4 F H Pulse Rate 75 Respiratory Rate Blood Pressure 91/41 L Pulse Oximetry Oxygen Delivery Oxygen Flow Rate 07/28/23 13:32 07/28/23 13:34 07/28/23 16:00 Temperature 100.8 F H 100.4 F H Pulse Rate 69 69 65 Respiratory Rate 18 22 H Blood Pressure 87/52 L 108/68 Pulse Oximetry 98 99 Oxygen Delivery Oxygen Flow Rate 07/28/23 16:00 07/28/23 1
[2023-07-29] MEDS: DOXYCYCLINE 100 MG/NS 100 ML 100 MG/100 ML BAG IVPB ×2 (10:23→20:51)
[2023-07-29] MEDS: COLCHICINE 0.6 MG TABLET PO ×2 (10:33→21:41)
[2023-07-29 12:19] LABS: Glucose Point of Care 186 mg/dl (65-105)
--- NOTE | 2023-07-29 12:47 | PM.IMPN ---
Progress Note: A&P Assessment and Plan (1) NSTEMI (non-ST elevated myocardial infarction): Code(s): I21.4 - Non-ST elevation (NSTEMI) myocardial infarction Status: Acute Assessment and Plan: Patient has symptoms consistent with a non ST-elevation myocardial infarction. Started her on a heparin drip for which she remains. Nitroglycerin paste 1 in Q 6 hours to be continued. Aspirin 81 mg p.o. daily. Continue Zetia, amlodipine, valsartan. She is not on a statin per patient wishes and side effects. 2D echocardiogram Doppler will be ordered and reviewed. See cardiology note - Cardiac catheterization 07/27/2022 showed: Right coronary dominant circulation with three-vessel coronary artery disease including 50-60% proximal LAD stenosis, more distal 90% complex LAD stenosis, 90% stenosis in a bifurcating septal perforating complex, 95% stenosis in small 1st OM and 90% bifurcation stenosis in the distal circumflex, 99% stenosis in the distal RCA just prior to the RPDA. Stented segments of the circumflex and right coronary is remain patent. Transfer had been arranged to [facility] for CABG evaluation. However, late yesterday afternoon, patient developed chest pain and EKG showed an inferior STEMI, therefore, she underwent emergent catheterization. Underwent successful uncomplicated emergency PCI deploying 3.5mm x 26 mm drug-eluting stent in the distal RCA into the RPDA and then post dilating the proximal segment with a 4.0 mm noncompliant balloon at 14 atmospheres with a nice angiographic result and latter day of CHAVEZ 3 flow into the distal RCA. (2) Afib: Qualifiers: Atrial fibrillation type: paroxysmal Qualified Code(s): I48.0 - Paroxysmal atrial fibrillation Code(s): I48.91 - Unspecified atrial fibrillation Status: Acute Assessment and Plan: She is on improper dose of flecainide per medical reconciliation. Will reduce her flecainide to 100 mg p.o. q.12 hours. Given her coronary disease history, would like to transition off of flecainide completely. (3) Type 2 diabetes mellitus with chronic kidney disease: Qualifiers: Diabetes mellitus watermelon inspector insulin use: with penitentiary use Chronic kidney disease stage: stage 4 (severe) Qualified Code(s): E11.22 - Type 2 diabetes mellitus with diabetic chronic kidney disease; N18.4 - Chronic kidney disease, stage 4 (severe); Z79.4 - [facility] (current) use of insulin Code(s): E11.22 - Type 2 diabetes mellitus with diabetic chronic kidney disease Status: Acute Assessment and Plan: - hypoglycemia protocol - POC blood glucose ACHS - home medication resumed/held -Tresiba continued, Ozempic held (NF). Injection day for Ozempic is on Tuesdays. - correction regimen ordered - low/high dose TIDWM and HS - A1C 7.4% in 05/2022 (4) HTN (hypertension): Qualifiers: Hypertension type: primary hypertension Qualified Code(s): I10 - Essential (primary) hypertension Code(s): I10 - Essential (primary) hypertension Status: Acute Assessment and Plan: Generally at goal (5) Chronic kidney disease, stage 4 (severe): Code(s): N18.4 - Chronic kidney disease, stage 4 (severe) Status: Acute Assessment and Plan: off lasix for now order BMP daily (6) CAD (coronary artery disease): Code(s): I25.10 - Atherosclerotic heart disease of [place] coronary artery without angina pectoris Status: Acute Assessment and Plan: Previous stents to the circumflex and RCA. (7) Cellulitis of arm, left: Code(s): L03.114 - Cellulitis of left upper limb Status: Acute Assessment and Plan: V superficial phelbitis ADD doxycycline iv to rocephin Plan Home Meds/Chronic Conditions - HLD: continue Zetia - asthma: Continue Advair, montelukast - gout: Continue allopurinol, colchicine p.r.n. Diet: heart healthy GI Prophylaxis: pantoprazole IVP DVT Prophylaxis: hepari
[2023-07-29 16:59] LABS: Glucose Point of Care 166 mg/dl (65-105)
[2023-07-29] MEDS: oxyBUTYnin CHLORIDE 5 MG TABLET PO (17:05)
[2023-07-29] MEDS: MONTELUKAST SODIUM 10 MG TABLET PO (17:05)
[2023-07-29] MEDS: allopurinoL 100 MG TABLET PO (17:05)
--- NOTE | 2023-07-29 17:16 | PC.NURSE ---
Addendum entered by Yanet Lee RN 07/29/23 18:52: talked with hospitalist and received new orders. Original Note: patient temperature measured at 103.0 with Umaña and rising. retook temp orally(98.8) and axillary (100.8) patient visibly shivering and feels cold. Tylenol given for elevated temp earlier in day, temp increased despite medication. nurse removed blankets from patient and turned room temp down called Hospitalist assigned for patient to notify of findings waiting for a returned call.
[2023-07-29] MEDS: ACETAMINOPHEN 500 MG TABLET 1000 MG PO (21:41)
[2023-07-30] VITALS (13 sets, daily range): BP systolic 104–123; BP diastolic 48–62; PULSE 58–65; RESP 16–22; TEMP 36.1–37.4; O2SAT 92–100
[2023-07-30 04:21] LABS: Basophils Percent Auto 0.3 % (0.2-1.2); Eosinophils Absolute Auto 0.4 K/mm3 (0-0.3); Eosinophils Percent Auto 3.5 % (0-4.4); Hematocrit 35.5 % (37.0-47.0); Hemoglobin 11.1 g/dL (12.0-15.0); Immature Granulocyte Absolute 0.05 K/mm3 (0.00-0.031); Immature Granulocyte Percent A 0.5 % (0-0.5); Lymphocytes Absolute Auto 1.74 K/mm3 (0.9-3.2); Lymphocytes Percent Auto 16.5 % (18.3-44.2); Mean Corpuscular HGB Conc 31.3 g/dl (32-36); Mean Corpuscular Hemoglobin 29.6 pg (26-34); Mean Corpuscular Volume 94.7 fl (80-100); Mean Platelet Volume 11.1 fl (7.4-10.4); Monocytes Absolute Auto 1.3 K/mm3 (0.1-0.6); Monocytes Percent Auto 12.2 % (2.6-8.5); Neutrophils Absolute Auto 7.1 K/mm3 (1.3-6.7); Platelet Count Result 251 k/mm3 (150-375); Red Blood Count 3.75 M/mm3 (4.2-5.4); Red Cell Distribution Width 14.2 % (11.5-14.5); White Blood Count 10.6 K/mm3 (4.5-10.0)
[2023-07-30] MEDS: MORPHINE SULFATE (*CRX) 2 MG/ML INJ IV PUSH (04:27)
[2023-07-30 04:36] LABS: Alanine Aminotransferase 15 U/L (6-35); Albumin Level 3.2 g/dL (3.5-5.1); Alkaline Phosphatase 62 U/L (38-126); Anion Gap 8 mmol/L (8-16); Aspartate Amino Transferase 19 U/L (14-36); Bilirubin,Total 0.5 mg/dL (0.2-1.3); Blood Urea Nitrogen 34 mg/dL (7-17); Calcium 8.7 mg/dL (8.4-10.2); Carbon Dioxide 23 mmol/L (22-30); Chloride 104 mmol/L (98-107); Estimated CRCL calculation 31 ml/min; Estimated Glomerular Filt Rate 31; Glucose 156 mg/dL (65-110); Magnesium 1.8 mg/dL (1.6-2.3); Potassium 3.8 mmol/L (3.4-5.0); Sodium 135 mmol/L (137-145)
[2023-07-30 08:11] LABS: Glucose Point of Care 137 mg/dl (65-105)
[2023-07-30] MEDS: FLUTICASONE/SALMETEROL 230-21 MCG INHALER 1 PUFF 2 PUFF INHALATION ×2 (08:37→21:30)
[2023-07-30] MEDS: ASPIRIN 81 MG CHEWABLE TABLET PO (09:03)
[2023-07-30] MEDS: amLODIPine BESYLATE 5 MG TABLET PO (09:04)
[2023-07-30] MEDS: cefTRIAXone 2 GM/NS 100 ML 2 GM/100 ML BAG IVPB (09:05)
[2023-07-30] MEDS: DOXYCYCLINE 100 MG/NS 100 ML 100 MG/100 ML BAG IVPB (09:05)
[2023-07-30] MEDS: COLCHICINE 0.6 MG TABLET PO (09:05)
[2023-07-30] MEDS: EZETIMIBE 10 MG TABLET PO (09:06)
[2023-07-30] MEDS: INSULIN GLARGINE (*BKC) 100 UNITS/ML 30 UNITS SUB-Q (09:06)
[2023-07-30] MEDS: METOPROLOL SUCCINATE EXT REL 50 MG TABCR PO (09:06)
[2023-07-30] MEDS: TICAGRELOR 90 MG TABLET PO ×2 (09:07→21:13)
[2023-07-30] MEDS: VALSARTAN 160 MG TABLET 320 MG PO (09:07)
[2023-07-30] MEDS: ROSUVASTATIN 10 MG TABLET 20 MG PO (09:07)
[2023-07-30] MEDS: PANTOPRAZOLE SODIUM IV 40 MG VIAL IV PUSH (09:07)
[2023-07-30] MEDS: polyethylene glycoL 3350 17 GM POWD.PACK PO (09:16)
--- NOTE | 2023-07-30 10:57 | PM.PNCARD ---
Progress Note: A&P Assessment and Plan (1) NSTEMI (non-ST elevated myocardial infarction): Code(s): I21.4 - Non-ST elevation (NSTEMI) myocardial infarction Status: Acute Assessment and Plan: Cardiac catheterization 07/27/2022 showed: Right coronary dominant circulation with three-vessel coronary artery disease including 50-60% proximal LAD stenosis, more distal 90% complex LAD stenosis, 90% stenosis in a bifurcating septal perforating complex, 95% stenosis in small 1st OM and 90% bifurcation stenosis in the distal circumflex, 99% stenosis in the distal RCA just prior to the RPDA. Stented segments of the circumflex and right coronary is remain patent. Transfer had been arranged to [facility] for CABG evaluation. However, late yesterday afternoon, patient developed chest pain and EKG showed an inferior STEMI, therefore, she underwent emergent catheterization. Underwent successful uncomplicated emergency PCI deploying 3.5mm x 26 mm drug-eluting stent in the distal RCA into the RPDA and then post dilating the proximal segment with a 4.0 mm noncompliant balloon at 14 atmospheres with a nice angiographic result and temple of CHAVEZ 3 flow into the distal RCA. Continue ASA 81mg once daily. Continue Brilinta 90mg BID. Continue statin. Continue Toprol. She wishes to have the circumflex and possible LAD interventions performed at [facility] by Dr. Guadarrama (2) Fever: Code(s): R50.9 - Fever, unspecified Status: Acute Assessment and Plan: Having fevers this morning. Undergoing infectious workup as per ICU team and surgery.. Her arm feels a bit better but still given induration, warmth, fevers. . . Consider reimaging or expanding antibiotic coverage further. This is especially important given her recent PCI (3) HTN (hypertension): Qualifiers: Hypertension type: primary hypertension Qualified Code(s): I10 - Essential (primary) hypertension Code(s): I10 - Essential (primary) hypertension Status: Acute Assessment and Plan: Generally at goal (4) Chronic kidney disease, stage 4 (severe): Code(s): N18.4 - Chronic kidney disease, stage 4 (severe) Status: Acute Assessment and Plan: Follow renal function closely (5) Type 2 diabetes mellitus with hyperglycemia: Qualifiers: Diabetes mellitus care home insulin use: with ad terminal makeup operator use Qualified Code(s): E11.65 - Type 2 diabetes mellitus with hyperglycemia; Z79.4 - local company intermodal truck driver (current) use of insulin Code(s): E11.65 - Type 2 diabetes mellitus with hyperglycemia Status: Acute Assessment and Plan: Management as per primary team. (6) Afib: Qualifiers: Atrial fibrillation type: paroxysmal Qualified Code(s): I48.0 - Paroxysmal atrial fibrillation Code(s): I48.91 - Unspecified atrial fibrillation Status: Acute Assessment and Plan: Flecainide was discontinued due to her coronary artery disease. Continue Toprol. Not on anticoagulation as an outpatient due to history of GI bleed. Subjective Date/time seen: 07/30/23 10:57 Interval history: Reason for visit: NSTEMI HPI: Patient is a 78-year-old female patient of [facility] who has a history of CAD.? She has had previous stent placement to the circumflex and RCA dating back to 2001.? Most recent angiogram showed a tiny 95% stenosis of a high obtuse marginal branch and [id number] disease elsewhere and medical management was pursued.? She has had a history of GI bleeding and is not on anticoagulation despite her atrial fibrillation history.? She was helping her yesterday when she developed acute onset of chest pain which was severe and radiated down her left arm.? She had associated shortness of breath and diaphoresis.? Symptoms started about 8:00 a.m..? It did resolve after a few minutes of chewing an aspirin.? Because of the severity of the pain though she did call 911 came to the hospital.
[2023-07-30 12:22] LABS: Glucose Point of Care 171 mg/dl (65-105)
--- NOTE | 2023-07-30 12:59 | PC.NURSE ---
This patient, Danielle Martines, was transferred to [facility] on 07/30/23 at 1255. Personal belongings sent with patient. Report given to Skylar. Appropriate documentation sent with patient.
--- NOTE | 2023-07-30 13:48 | PM.IMPN ---
Progress Note: A&P Assessment and Plan (1) NSTEMI (non-ST elevated myocardial infarction): Code(s): I21.4 - Non-ST elevation (NSTEMI) myocardial infarction Status: Acute Assessment and Plan: Patient has symptoms consistent with a non ST-elevation myocardial infarction. Started her on a heparin drip for which she remains. Nitroglycerin paste 1 in Q 6 hours to be continued. Aspirin 81 mg p.o. daily. Continue Zetia, amlodipine, valsartan. She is not on a statin per patient wishes and side effects. 2D echocardiogram Doppler will be ordered and reviewed. See cardiology note - Cardiac catheterization 07/27/2022 showed: Right coronary dominant circulation with three-vessel coronary artery disease including 50-60% proximal LAD stenosis, more distal 90% complex LAD stenosis, 90% stenosis in a bifurcating septal perforating complex, 95% stenosis in small 1st OM and 90% bifurcation stenosis in the distal circumflex, 99% stenosis in the distal RCA just prior to the RPDA. Stented segments of the circumflex and right coronary is remain patent. Transfer had been arranged to [facility] for CABG evaluation. However, late yesterday afternoon, patient developed chest pain and EKG showed an inferior STEMI, therefore, she underwent emergent catheterization. Underwent successful uncomplicated emergency PCI deploying 3.5mm x 26 mm drug-eluting stent in the distal RCA into the RPDA and then post dilating the proximal segment with a 4.0 mm noncompliant balloon at 14 atmospheres with a nice angiographic result and uatsdin of CHAVEZ 3 flow into the distal RCA. (2) Afib: Qualifiers: Atrial fibrillation type: paroxysmal Qualified Code(s): I48.0 - Paroxysmal atrial fibrillation Code(s): I48.91 - Unspecified atrial fibrillation Status: Acute Assessment and Plan: She is on improper dose of flecainide per medical reconciliation. Will reduce her flecainide to 100 mg p.o. q.12 hours. Given her coronary disease history, would like to transition off of flecainide completely. (3) Type 2 diabetes mellitus with chronic kidney disease: Qualifiers: Diabetes mellitus intermodal owner operator truck driver insulin use: with fdc use Chronic kidney disease stage: stage 4 (severe) Qualified Code(s): E11.22 - Type 2 diabetes mellitus with diabetic chronic kidney disease; N18.4 - Chronic kidney disease, stage 4 (severe); Z79.4 - snf (current) use of insulin Code(s): E11.22 - Type 2 diabetes mellitus with diabetic chronic kidney disease Status: Acute Assessment and Plan: - hypoglycemia protocol - POC blood glucose ACHS - home medication resumed/held -Tresiba continued, Ozempic held (NF). Injection day for Ozempic is on Tuesdays. - correction regimen ordered - low/high dose TIDWM and HS - A1C 7.4% in 05/2022 (4) HTN (hypertension): Qualifiers: Hypertension type: primary hypertension Qualified Code(s): I10 - Essential (primary) hypertension Code(s): I10 - Essential (primary) hypertension Status: Acute Assessment and Plan: Generally at goal (5) Chronic kidney disease, stage 4 (severe): Code(s): N18.4 - Chronic kidney disease, stage 4 (severe) Status: Acute Assessment and Plan: off lasix for now order BMP daily (6) CAD (coronary artery disease): Code(s): I25.10 - Atherosclerotic heart disease of [place] coronary artery without angina pectoris Status: Acute Assessment and Plan: Previous stents to the circumflex and RCA. (7) Cellulitis of arm, left: Code(s): L03.114 - Cellulitis of left upper limb Status: Acute Assessment and Plan: V superficial phelbitis ADD doxycycline iv to rocephin dc rocephin Pt started on iv doxycycline having some arm pain during infusion plan continue doxy or switch to vanc pt needing iv abx as pt still spiking fever of 103f continue to watch if fevers stays down maybe able to switch t
--- NOTE | 2023-07-30 14:13 | PM.PNGS ---
Progress Note: A&P Assessment and Plan (1) Abscess of left arm: Code(s): L02.414 - Cutaneous abscess of left upper limb Status: Acute Assessment and Plan: Left arm cellulitis resolving. Fevers improving. Tiny open wound in the AC area from previous IV. Continue local wound care with silver gel dressing changes. No purulent drainage or induration on exam. No indication for any surgical intervention at this time. Will sign off. Call with surgical questions or concerns. (2) Fever: Code(s): R50.9 - Fever, unspecified Status: Acute Assessment and Plan: Fevers improving. Etiology not entirely clear. Continue antibiotics per primary service. Blood cx NGTD. Wound cx preliminary showing staph aureus. (3) Superficial thrombophlebitis of arm: Code(s): I80.8 - Phlebitis and thrombophlebitis of other sites Status: Acute (4) UTI (urinary tract infection): Code(s): N39.0 - Urinary tract infection, site not specified Status: Acute Assessment and Plan: Continue IV antibiotics per primary team, urine cx pending (5) ST elevation (STEMI) myocardial infarction: Code(s): I21.3 - ST elevation (STEMI) myocardial infarction of unspecified site Status: Acute Plan I have discussed the patient's case and plan of care with Dr. Parra. Subjective Subjective Date/Time Seen: 07/30/23 14:13 Patient reports: no new complaints Interval history: Patient seen today in ICU as IMU overflow. She is doing well. No new complaints. Her left arm is still somewhat sore, but redness and swelling much improved. Temperature curve trending down over the past 24 hours. IV antibiotics switched to doxycycline. Exam Const: General: comfortable and no acute distress Orientation/consciousness: patient oriented x3 Skin: Other: Left antecubital area with still a small less than 0.5 cm open wound in the AC with no purulent drainage, no induration, and no fluctuance. Erythema and edema completely resolved. Objective Data Vital Signs Vital Signs: Vital Signs - 24 hr 07/29/23 17:33 07/29/23 16:00 07/29/23 16:00 Temperature 103 F H Pulse Rate 76 Respiratory Rate Blood Pressure Pulse Oximetry Oxygen Delivery Room Air 07/29/23 16:00 07/29/23 18:00 07/29/23 18:32 Temperature 103 F H 103 F H Pulse Rate 76 72 Respiratory Rate 22 H Blood Pressure 109/66 Pulse Oximetry 100 Oxygen Delivery 07/29/23 20:36 07/29/23 21:41 07/29/23 21:59 Temperature 101.8 F H 101.4 F H Pulse Rate 72 67 Respiratory Rate 18 18 Blood Pressure 98/63 L Pulse Oximetry 98 Oxygen Delivery 07/29/23 20:00 07/29/23 20:00 07/29/23 22:00 Temperature Pulse Rate 67 73 66 Respiratory Rate 18 Blood Pressure Pulse Oximetry 98 Oxygen Delivery Room Air 07/29/23 23:48 07/29/23 22:41 07/30/23 00:00 Temperature 99.9 F H Pulse Rate 65 65 Respiratory Rate Blood Pressure Pulse Oximetry Oxygen Delivery Room Air 07/30/23 00:00 07/30/23 02:00 07/30/23 03:26 Temperature 99.0 F Pulse Rate 60 63 58 L Respiratory Rate 16 Blood Pressure 118/54 L Pulse Oximetry 96 Oxygen Delivery Room Air 07/30/23 04:00 07/30/23 04:00 07/30/23 06:00 Temperature 98.7 F Pulse Rate 60 61 60 Respiratory Rate 18 Blood Pressure 104/48 L Pulse Oximetry 98 Oxygen Delivery 07/30/23 08:38 07/30/23 08:39 07/30/23 08:00 Temperature 99.4 F Pulse Rate 64 65 Respiratory Rate 19 21 H Blood Pressure 110/61 Pulse Oximetry 95 92 Oxygen Delivery Room Air 07/30/23 09:06 07/30/23 08:00 Temperature Pulse Rate 63 Respiratory Rate Blood Pressure Pulse Oximetry Oxygen Delivery Room Air Intake/Output Intake/Output: Intake & Output 07/27/23 07/28/23 07/29/23 07/30/23 23:59 23:59 23:59 23:59 Intake Total 1700 3880 1030 640 Output Total 700 3200 2150 1700 Balance [phone] -[phone] -[id number] Meds/Results M
--- NOTE | 2023-07-30 14:18 | PM.PNGS ---
Progress Note: A&P Assessment and Plan (1) Superficial thrombophlebitis of arm: Code(s): I80.8 - Phlebitis and thrombophlebitis of other sites Status: Acute Assessment and Plan: improved, cont local wound care and abx,no acute surgical issues at this point, will s/o, call c ?s, issues Subjective Subjective Date/Time Seen: 07/30/23 14:18 Interval history: no acute issues, transferred to the floor, reports LUE is still somewhat sore but improved Review of Systems Review of Systems: All systems reviewed & are unremarkable except as noted in HPI and below Exam Const: General: cooperative, comfortable and no acute distress Resp: Auscultation: clear to auscultation bilaterally Cardio: Rate: regular rate Rhythm: regular rhythm GI: Inspection: normal to inspection Skin: Other: LUE thrombophelbitis - improving, no drainage, no cellulitis, induration improved Objective Data Vital Signs Vital Signs: Vital Signs - 24 hr 07/29/23 17:33 07/29/23 16:00 07/29/23 16:00 Temperature 39.4 C H Pulse Rate 76 Respiratory Rate Blood Pressure Pulse Oximetry Oxygen Delivery Room Air 07/29/23 16:00 07/29/23 18:00 07/29/23 18:32 Temperature 39.4 C H 39.4 C H Pulse Rate 76 72 Respiratory Rate 22 H Blood Pressure 109/66 Pulse Oximetry 100 Oxygen Delivery 07/29/23 20:36 07/29/23 21:41 07/29/23 21:59 Temperature 38.8 C H 38.6 C H Pulse Rate 72 67 Respiratory Rate 18 18 Blood Pressure 98/63 L Pulse Oximetry 98 Oxygen Delivery 07/29/23 20:00 07/29/23 20:00 07/29/23 22:00 Temperature Pulse Rate 67 73 66 Respiratory Rate 18 Blood Pressure Pulse Oximetry 98 Oxygen Delivery Room Air 07/29/23 23:48 07/29/23 22:41 07/30/23 00:00 Temperature 37.7 C H Pulse Rate 65 65 Respiratory Rate Blood Pressure Pulse Oximetry Oxygen Delivery Room Air 07/30/23 00:00 07/30/23 02:00 07/30/23 03:26 Temperature 37.2 C Pulse Rate 60 63 58 L Respiratory Rate 16 Blood Pressure 118/54 L Pulse Oximetry 96 Oxygen Delivery Room Air 07/30/23 04:00 07/30/23 04:00 07/30/23 06:00 Temperature 37.1 C Pulse Rate 60 61 60 Respiratory Rate 18 Blood Pressure 104/48 L Pulse Oximetry 98 Oxygen Delivery 07/30/23 08:38 07/30/23 08:39 07/30/23 08:00 Temperature 37.4 C Pulse Rate 64 65 Respiratory Rate 19 21 H Blood Pressure 110/61 Pulse Oximetry 95 92 Oxygen Delivery Room Air 07/30/23 09:06 07/30/23 08:00 Temperature Pulse Rate 63 Respiratory Rate Blood Pressure Pulse Oximetry Oxygen Delivery Room Air Intake/Output Intake/Output: Intake & Output 07/27/23 07/28/23 07/29/23 07/30/23 23:59 23:59 23:59 23:59 Intake Total 1700 3880 1030 640 Output Total 700 3200 2150 1700 Balance 1000 680 1120 1060 Meds/Results Medications: Active Medications Generic Name Dose Route Start Last Admin Trade Name Parthq PRN Reason Stop Dose Admin Acetaminophen 1,000 mg 07/29/23 19:31 07/29/23 21:41 Acetaminophen 500 Mg Tablet PO 1,000 mg Q6H PRN Administration Mild Pain (1-3) or Fever Allopurinol 100 mg 07/25/23 18:00 07/29/23 17:05 Allopurinol 100 Mg Tablet PO 100 mg QPM EMILY Administration Amlodipine Besylate 5 mg 07/26/23 09:00 07/30/23 09:04 Amlodipine Besylate 5 Mg Tablet PO 5 [facility] Aspirin 81 mg 07/26/23 10:45 07/30/23 09:05 Aspirin 81 Mg Enteric Tablet PO Not Given QAM [facility] Aspirin 81 mg 07/28/23 08:00 07/30/23 09:03 Aspirin 81 Mg Chewable Tablet PO 81 mg DAILY@0800 [facility] Administration Colchicine 0.6 mg 07/29/23 09:14 07/30/23 09:05 Colchicine 0.6 Mg Tablet PO 0.6 mg BID PRN Administration gout flares Dextrose 12.5 gm 07/25/23 18:15 Dextrose 50% 25 Gm/50 Ml Syringe IV PUSH PRN PRN Hypoglycemia Protocol Ezetimibe 10 mg 07/26/23 09:00 07/30/23 09:06 Ezetim
[2023-07-30] MEDS: ACETAMINOPHEN 500 MG TABLET 1000 MG PO (14:47)
--- NOTE | 2023-07-30 16:12 | PCDIET ---
Addendum entered by Skylar Carroll RN 07/30/23 16:14: Chest pain rated 2 out of 10. Currently is pain free. Rates pain 0 out of 10. Resting comfortably per bed. Call light in reach. Original Note: Pt stated she had an episode of pain at her chest ratd 2 out of 20
[2023-07-30 16:35] LABS: Glucose Point of Care 128 mg/dl (65-105)
[2023-07-30] MEDS: allopurinoL 100 MG TABLET PO (18:07)
[2023-07-30] MEDS: MONTELUKAST SODIUM 10 MG TABLET PO (18:07)
[2023-07-30] MEDS: oxyBUTYnin CHLORIDE 5 MG TABLET PO (18:07)
[2023-07-30] MEDS: DOXYCYCLINE 100 MG/NS 100 ML 100 MG/100 ML BAG 75 MG IVPB (21:16)
[2023-07-31] VITALS (8 sets, daily range): BP systolic 107–114; BP diastolic 59–63; PULSE 55–65; RESP 16–25; TEMP 36.1–36.4; O2SAT 94–98
[2023-07-31] MEDS: MORPHINE SULFATE (*CRX) 2 MG/ML INJ IV PUSH (04:59)
[2023-07-31 05:25] LABS: Glucose Point of Care 144 mg/dl (65-105)
[2023-07-31 06:15] LABS: Basophils Absolute Auto 0.1 K/mm3 (0.0-0.1); Basophils Percent Auto 0.6 % (0.2-1.2); Eosinophils Absolute Auto 0.6 K/mm3 (0-0.3); Eosinophils Percent Auto 6.3 % (0-4.4); Hematocrit 38.7 % (37.0-47.0); Hemoglobin 11.2 g/dL (12.0-15.0); Immature Granulocyte Absolute 0.05 K/mm3 (0.00-0.031); Immature Granulocyte Percent A 0.5 % (0-0.5); Lymphocytes Absolute Auto 1.81 K/mm3 (0.9-3.2); Lymphocytes Percent Auto 18.3 % (18.3-44.2); Mean Corpuscular HGB Conc 28.9 g/dl (32-36); Mean Corpuscular Hemoglobin 29.2 pg (26-34); Monocytes Absolute Auto 0.9 K/mm3 (0.1-0.6); Monocytes Percent Auto 9.4 % (2.6-8.5); Neutrophils Absolute Auto 6.4 K/mm3 (1.3-6.7); Neutrophils Percent Auto 64.9 % (45.5-73.1); Platelet Count Result 287 k/mm3 (150-375); Red Blood Count 3.83 M/mm3 (4.2-5.4); Red Cell Distribution Width 14.1 % (11.5-14.5); White Blood Count 9.9 K/mm3 (4.5-10.0)
[2023-07-31 06:32] LABS: Alanine Aminotransferase 18 U/L (6-35); Albumin Level 3.5 g/dL (3.5-5.1); Alkaline Phosphatase 71 U/L (38-126); Anion Gap 8 mmol/L (8-16); Aspartate Amino Transferase 23 U/L (14-36); Bilirubin,Total 0.5 mg/dL (0.2-1.3); Blood Urea Nitrogen 38 mg/dL (7-17); Carbon Dioxide 20 mmol/L (22-30); Chloride 107 mmol/L (98-107); Estimated CRCL calculation 37 ml/min; Estimated Glomerular Filt Rate 40; Glucose 139 mg/dL (65-110); Magnesium 2.1 mg/dL (1.6-2.3); Potassium 4.2 mmol/L (3.4-5.0); Sodium 135 mmol/L (137-145)
[2023-07-31 07:51] LABS: Glucose Point of Care 156 mg/dl (65-105)
[2023-07-31] MEDS: FLUTICASONE/SALMETEROL 230-21 MCG INHALER 1 PUFF 2 PUFF INHALATION ×2 (08:20→20:18)
[2023-07-31 08:52] LABS: Hypochromasia 1+ (NORMAL); Platelet Estimate Adequate (Adequate); Schistocytes None Seen (NORMAL)
[2023-07-31] MEDS: ACETAMINOPHEN 500 MG TABLET 1000 MG PO ×2 (09:32→18:07)
[2023-07-31] MEDS: polyethylene glycoL 3350 17 GM POWD.PACK PO (09:32)
[2023-07-31] MEDS: ROSUVASTATIN 10 MG TABLET 20 MG PO (09:34)
[2023-07-31] MEDS: VALSARTAN 160 MG TABLET 320 MG PO (09:34)
[2023-07-31] MEDS: COLCHICINE 0.6 MG TABLET PO ×2 (09:34→18:07)
[2023-07-31] MEDS: amLODIPine BESYLATE 5 MG TABLET PO (09:34)
[2023-07-31] MEDS: METOPROLOL SUCCINATE EXT REL 50 MG TABCR PO (09:34)
[2023-07-31] MEDS: TICAGRELOR 90 MG TABLET PO ×2 (09:34→21:08)
[2023-07-31] MEDS: EZETIMIBE 10 MG TABLET PO (09:34)
[2023-07-31] MEDS: ASPIRIN 81 MG CHEWABLE TABLET PO (09:35)
[2023-07-31] MEDS: INSULIN GLARGINE (*BKC) 100 UNITS/ML 30 UNITS SUB-Q (09:35)
[2023-07-31] MEDS: PANTOPRAZOLE SODIUM IV 40 MG VIAL IV PUSH (09:36)
--- NOTE | 2023-07-31 11:12 | PM.IMPN ---
Progress Note: A&P Assessment and Plan (1) NSTEMI (non-ST elevated myocardial infarction): Code(s): I21.4 - Non-ST elevation (NSTEMI) myocardial infarction Status: Acute Assessment and Plan: Patient has symptoms consistent with a non ST-elevation myocardial infarction. Started her on a heparin drip on admission Nitroglycerin paste 1 in Q 6 hours to be continued. Aspirin 81 mg p.o. daily. Continue Zetia, amlodipine, valsartan. She is not on a statin per patient wishes and side effects. 2D echocardiogram Doppler will be ordered and reviewed. See cardiology note - Cardiac catheterization 07/27/2022 showed: Right coronary dominant circulation with three-vessel coronary artery disease including 50-60% proximal LAD stenosis, more distal 90% complex LAD stenosis, 90% stenosis in a bifurcating septal perforating complex, 95% stenosis in small 1st OM and 90% bifurcation stenosis in the distal circumflex, 99% stenosis in the distal RCA just prior to the RPDA. Stented segments of the circumflex and right coronary is remain patent. Transfer had been arranged to [facility] for CABG evaluation. However, late afternoon, patient developed chest pain and EKG showed an inferior STEMI, therefore, she underwent emergent catheterization. Underwent successful uncomplicated emergency PCI deploying 3.5mm x 26 mm drug-eluting stent in the distal RCA into the RPDA and then post dilating the proximal segment with a 4.0 mm noncompliant balloon at 14 atmospheres with a nice angiographic result and rastafarian of CHAVEZ 3 flow into the distal RCA. (2) Afib: Qualifiers: Atrial fibrillation type: paroxysmal Qualified Code(s): I48.0 - Paroxysmal atrial fibrillation Code(s): I48.91 - Unspecified atrial fibrillation Status: Acute Assessment and Plan: She is on improper dose of flecainide per medical reconciliation. Will reduce her flecainide to 100 mg p.o. q.12 hours. Given her coronary disease history, would like to transition off of flecainide completely. Flecainide now discontinued (3) Type 2 diabetes mellitus with chronic kidney disease: Qualifiers: Diabetes mellitus residential insulin use: with superintendent marine oil terminal use Chronic kidney disease stage: stage 4 (severe) Qualified Code(s): E11.22 - Type 2 diabetes mellitus with diabetic chronic kidney disease; N18.4 - Chronic kidney disease, stage 4 (severe); Z79.4 - assisted (current) use of insulin Code(s): E11.22 - Type 2 diabetes mellitus with diabetic chronic kidney disease Status: Acute Assessment and Plan: - hypoglycemia protocol - POC blood glucose ACHS - home medication resumed/held -Tresiba continued, Ozempic held (NF). Injection day for Ozempic is on Tuesdays. - correction regimen ordered - low/high dose TIDWM and HS - A1C 7.4% in 05/2022 (4) HTN (hypertension): Qualifiers: Hypertension type: primary hypertension Qualified Code(s): I10 - Essential (primary) hypertension Code(s): I10 - Essential (primary) hypertension Status: Acute Assessment and Plan: Generally at goal (5) Chronic kidney disease, stage 4 (severe): Code(s): N18.4 - Chronic kidney disease, stage 4 (severe) Status: Acute Assessment and Plan: off lasix for now order BMP daily Unstable (6) CAD (coronary artery disease): Code(s): I25.10 - Atherosclerotic heart disease of [place] coronary artery without angina pectoris Status: Acute Assessment and Plan: Previous stents to the circumflex and RCA. (7) Cellulitis of arm, left: Code(s): L03.114 - Cellulitis of left upper limb Status: Acute Assessment and Plan: V superficial phelbitis ADD doxycycline iv to rocephin dc rocephin Pt started on iv doxycycline having some arm pain during infusion plan continue doxy or switch to vanc pt needing iv abx as pt still spiking fever of 103f General surgery has been consulted and karl
[2023-07-31] MEDS: CEPHALEXIN 500 MG CAPSULE PO ×2 (12:11→18:07)
--- NOTE | 2023-07-31 13:57 | PM.PNCARD ---
Progress Note: A&P Assessment and Plan (1) ST elevation (STEMI) myocardial infarction: Code(s): I21.3 - ST elevation (STEMI) myocardial infarction of unspecified site Status: Acute Plan 78-year-old lady with: Multivessel coronary artery disease and history of paroxysmal she presented last weekend with acute coronary syndrome was found to have multivessel disease with culprit being high-grade subtotal stenosis of the distal RCA. His were in place to transfer her for surgical revascularization/consultation at [facility]. Before she left the hospital however she occluded her RCA and PN having inferior ST-elevation UT. RCA disease was therefore dealt with emergently with PCI and drug-eluting stent to the distal RCA. She has stabilized since then. She is still in the hospital as an IV access site in her arm developed an abscess and she became significantly febrile. That seems to be resolving at this point. She indicates the plans are to discharge her in the next 48 hours if things remain stable in that regard. I will see that she has appropriate follow-up scheduled in our office as well as referral to [facility] for completion of her interventional revascularization. Now that her RCA disease has been treated interventionally she will be treated with PCI of the left coronary lesions as well. Pankaj Snyder MD [facility] Subjective Date/time seen: Date of service: 07/31/23 13:57 Interval history: Reason for visit: NSTEMI HPI: Patient is a 78-year-old female patient of [employer] who has a history of CAD.? She has had previous stent placement to the circumflex and RCA dating back to 2001.? Most recent angiogram showed a tiny 95% stenosis of a high obtuse marginal branch and [id number] disease elsewhere and medical management was pursued.? She has had a history of GI bleeding and is not on anticoagulation despite her atrial fibrillation history.? She was helping her yesterday when she developed acute onset of chest pain which was severe and radiated down her left arm.? She had associated shortness of breath and diaphoresis.? Symptoms started about 8:00 a.m..? It did resolve after a few minutes of chewing an aspirin.? Because of the severity of the pain though she did call 911 came to the hospital.? She did rule in for myocardial infarction.? She has had 2 other episodes of chest pain while on the floor.? I started her on nitroglycerin paste yesterday and since that time her chest pain has not recurred.? She has had little bit of intermittent chest tightness that has radiated up into her neck but currently is pain-free.? She has had less swelling.? She denies any significant shortness of breath, syncope, presyncope, paroxysmal nocturnal dyspnea, orthopnea, palpitations Date of service 07/27: Underwent cardiac catheterization yesterday morning which showed multivessel coronary artery disease. Transfer had been arranged to [facility] for CABG evaluation. However, late yesterday afternoon, patient developed chest pain and EKG showed an inferior STEMI, therefore, she underwent emergent catheterization with successful PCI of the distal RCA into the RPDA. This morning, she is feeling tired, but otherwise no chest pain, shortness of breath, palpitations. Has fevers this morning, therefore, undergoing infectious workup now per ICU team. Date of service 07/29/2023: From a cardiac perspective she is feeling okay. She is still feverish and chilled however in her left arm is swollen and warm. She denies any chest pain, shortness of breath. Date of service 07/30/2023: Still spiking temps. No chest pain or shortness of breath. Date of service 07/31/2023: She is doing well now asymptomatic has become afebrile and has been transitioned to p.o. antibiotics since peripheral IV access has been difficult to maintain. No cardiovascular complaint Exam Narrative: Awake alert oriented appears to be in no acute d
[2023-07-31] MEDS: oxyBUTYnin CHLORIDE 5 MG TABLET PO (18:07)
[2023-07-31] MEDS: allopurinoL 100 MG TABLET PO (18:07)
[2023-07-31] MEDS: MONTELUKAST SODIUM 10 MG TABLET PO (18:07)
[2023-07-31] MEDS: BISACODYL 10 MG SUPPOSITORY RECTAL (18:15)
[2023-08-01] MEDS: CEPHALEXIN 500 MG CAPSULE PO ×3 (00:44→11:11)
[2023-08-01] MEDS: ACETAMINOPHEN 500 MG TABLET 1000 MG PO ×3 (01:46→16:10)
[2023-08-01 02:35] VITALS: PULSE 59; O2SAT 98
[2023-08-01 05:54] VITALS: BP 116/64; PULSE 53; RESP 16; TEMP 36.2; O2SAT 99
[2023-08-01 06:14] LABS: Basophils Absolute Auto 0.1 K/mm3 (0.0-0.1); Basophils Percent Auto 0.6 % (0.2-1.2); Eosinophils Absolute Auto 0.7 K/mm3 (0-0.3); Eosinophils Percent Auto 8.7 % (0-4.4); Hematocrit 35.8 % (37.0-47.0); Hemoglobin 11.4 g/dL (12.0-15.0); Immature Granulocyte Absolute 0.04 K/mm3 (0.00-0.031); Immature Granulocyte Percent A 0.5 % (0-0.5); Lymphocytes Absolute Auto 1.94 K/mm3 (0.9-3.2); Lymphocytes Percent Auto 24.9 % (18.3-44.2); Mean Corpuscular HGB Conc 31.8 g/dl (32-36); Mean Corpuscular Hemoglobin 29.5 pg (26-34); Mean Corpuscular Volume 92.7 fl (80-100); Mean Platelet Volume 10.5 fl (7.4-10.4); Monocytes Absolute Auto 0.6 K/mm3 (0.1-0.6); Monocytes Percent Auto 7.8 % (2.6-8.5); Neutrophils Absolute Auto 4.5 K/mm3 (1.3-6.7); Neutrophils Percent Auto 57.5 % (45.5-73.1); Platelet Count Result 320 k/mm3 (150-375); Red Blood Count 3.86 M/mm3 (4.2-5.4); Red Cell Distribution Width 13.8 % (11.5-14.5); White Blood Count 7.8 K/mm3 (4.5-10.0)
[2023-08-01 06:30] LABS: Alanine Aminotransferase 18 U/L (6-35); Albumin Level 3.4 g/dL (3.5-5.1); Alkaline Phosphatase 75 U/L (38-126); Anion Gap 6 mmol/L (8-16); Aspartate Amino Transferase 21 U/L (14-36); Bilirubin,Total 0.4 mg/dL (0.2-1.3); Blood Urea Nitrogen 43 mg/dL (7-17); Calcium 9.3 mg/dL (8.4-10.2); Carbon Dioxide 24 mmol/L (22-30); Chloride 106 mmol/L (98-107); Estimated CRCL calculation 32 ml/min; Estimated Glomerular Filt Rate 34; Glucose 137 mg/dL (65-110); Magnesium 2.1 mg/dL (1.6-2.3); Sodium 136 mmol/L (137-145)
[2023-08-01] MEDS: FLUTICASONE/SALMETEROL 230-21 MCG INHALER 1 PUFF 2 PUFF INHALATION (08:13)
[2023-08-01 08:26] VITALS: PULSE 60
[2023-08-01] MEDS: VALSARTAN 160 MG TABLET 320 MG PO (08:26)
[2023-08-01] MEDS: ASPIRIN 81 MG ENTERIC TABLET PO (08:26)
[2023-08-01] MEDS: TICAGRELOR 90 MG TABLET PO (08:26)
[2023-08-01] MEDS: COLCHICINE 0.6 MG TABLET PO ×2 (08:26→16:10)
[2023-08-01] MEDS: amLODIPine BESYLATE 5 MG TABLET PO (08:26)
[2023-08-01] MEDS: METOPROLOL SUCCINATE EXT REL 50 MG TABCR PO (08:26)
[2023-08-01] MEDS: EZETIMIBE 10 MG TABLET PO (08:26)
[2023-08-01] MEDS: polyethylene glycoL 3350 17 GM POWD.PACK PO (08:26)
[2023-08-01] MEDS: ROSUVASTATIN 10 MG TABLET 20 MG PO (08:26)
[2023-08-01] MEDS: INSULIN GLARGINE (*BKC) 100 UNITS/ML 30 UNITS SUB-Q (08:27)
[2023-08-01] MEDS: PANTOPRAZOLE SODIUM IV 40 MG VIAL IV PUSH (08:27)
[2023-08-01 11:25] LABS: Glucose Point of Care 139 mg/dl (65-105)
--- NOTE | 2023-08-01 11:33 | PCPTNOTE ---
Patient declined treatment session at this time. She stated I'm going home today. I just got done working with OT and just need to rest for a bit. Will attempt again later.
--- NOTE | 2023-08-01 12:55 | PM.DS ---
DS: Admitting Diagnosis Discharge Date 08/01/2023 Admitting Diagnosis Chest pain DS: Discharge Diagnosis Discharge Diagnosis (1) NSTEMI (non-ST elevated myocardial infarction): Code(s): I21.4 - Non-ST elevation (NSTEMI) myocardial infarction Status: Acute (2) Afib: Qualifiers: Atrial fibrillation type: paroxysmal Qualified Code(s): I48.0 - Paroxysmal atrial fibrillation Code(s): I48.91 - Unspecified atrial fibrillation Status: Acute (3) Type 2 diabetes mellitus with chronic kidney disease: Qualifiers: Diabetes mellitus residential insulin use: with local intermodal truck driver use Chronic kidney disease stage: stage 4 (severe) Qualified Code(s): E11.22 - Type 2 diabetes mellitus with diabetic chronic kidney disease; N18.4 - Chronic kidney disease, stage 4 (severe); Z79.4 - superintendent terminal (current) use of insulin Code(s): E11.22 - Type 2 diabetes mellitus with diabetic chronic kidney disease Status: Acute (4) HTN (hypertension): Qualifiers: Hypertension type: primary hypertension Qualified Code(s): I10 - Essential (primary) hypertension Code(s): I10 - Essential (primary) hypertension Status: Acute (5) Chronic kidney disease, stage 4 (severe): Code(s): N18.4 - Chronic kidney disease, stage 4 (severe) Status: Acute (6) CAD (coronary artery disease): Code(s): I25.10 - Atherosclerotic heart disease of [place] coronary artery without angina pectoris Status: Acute (7) Cellulitis of arm, left: Code(s): L03.114 - Cellulitis of left upper limb Status: Acute DS: Summary Hospital Course Hospital Course: Patient presented with symptoms consistent with a non ST-elevation myocardial infarction.? Started her on a heparin drip on admission. Nitroglycerin paste 1 in Q 6 hours to be continued.? Aspirin 81 mg p.o. daily.? Continue Zetia, amlodipine, valsartan.? She is not on a statin per patient wishes and side effects.? 2D echocardiogram Doppler will be ordered and reviewed. Statin added See cardiology note - Cardiac catheterization 07/27/2022 showed: Right coronary dominant circulation with three-vessel coronary artery disease including 50-60% proximal LAD stenosis, more distal 90% complex LAD stenosis, 90% stenosis in a bifurcating septal perforating complex, 95% stenosis in small 1st OM and 90% bifurcation stenosis in the distal circumflex, 99% stenosis in the distal RCA just prior to the RPDA. Stented segments of the circumflex and right coronary is remain patent. Transfer had been arranged to [facility] for CABG evaluation. However, late afternoon on 07/27/2023, patient developed chest pain and EKG showed an inferior STEMI, therefore, she underwent emergent catheterization. Underwent successful uncomplicated emergency PCI deploying 3.5mm x 26 mm drug-eluting stent in the distal RCA into the RPDA and then post dilating the proximal segment with a 4.0 mm noncompliant balloon at 14 atmospheres with a nice angiographic result and religious of CHAVEZ 3 flow into the distal RCA. Doing well post stent placement give per discharge per Cardiology on aspirin and Brilinta She was also on flecainide for her atrial fibrillation coronary artery disease this has been transitioned off during the hospital stay. Type 2 diabetes on insulin regimen is continued and monitored during the hospital stay Hypertension indication CKD stage 3 so monitor during the hospital stay Cellulitis left arm with superficial phlebitis treated with IV antibiotics switched to cephalexin. Wound culture grew MSSA. Finish the course at discharge at home Time Spent with Patient Time attestation: Total time spent providing and/or coordinating discharge services: 35 minutes Exam Narrative: APPEARANCE: Well appearing, no pain, no distress, well-nourished. HEAD: normocephalic, atraumatic. EYES: PERRLA/EOMI, conjunctivae clear. NOSE: Normal no drainage NECK: Supple. No adenopathy,
[2023-08-01 14:00] VITALS: BP 105/47; PULSE 62; RESP 18; TEMP 35.9; O2SAT 100
== END 2023-08-01 15:35 | disposition home or self-care (01) | DRG 322 ==
LOC: ANHED 09:45 → ANHIMU 15:00 → ANHICU 07-27 17:27 → ANH3MEDSUR 07-30 12:52
PROVIDERS: General Practice; Internal Medicine; Internal Medicine Cardiovascular Disease; Nurse Practitioner; Specialist; Student in an Organized Health Care Education/Training Program; Admitting Provider Family Medicine; Emergency Provider Emergency Medicine; PCP Family Medicine; Visit Provider Family Medicine
PROC: B211YZZ Fluoroscopy of Multiple Coronary Arteries using Other Contrast (ICD-10-PCS; CPT 93454; principal; 2023-07-27 11:30)
DX: I21.19 ST elevation (STEMI) myocardial infarction involving other coronary artery of inferior wall (principal); N18.4 Chronic kidney disease, stage 4 (severe); Z68.42 Body mass index [BMI] 45.0-49.9, adult; L02.414 Cutaneous abscess of left upper limb; T80.1XXA Vascular complications following infusion, transfusion and therapeutic injection, initial encounter; B95.61 Methicillin susceptible Staphylococcus aureus infection as the cause of diseases classified elsewhere; I80.8 Phlebitis and thrombophlebitis of other sites; E11.65 Type 2 diabetes mellitus with hyperglycemia; I25.10 Atherosclerotic heart disease of native coronary artery without angina pectoris; I12.9 Hypertensive chronic kidney disease with stage 1 through stage 4 chronic kidney disease, or unspecified chronic kidney disease; E11.22 Type 2 diabetes mellitus with diabetic chronic kidney disease; I48.0 Paroxysmal atrial fibrillation; J45.20 Mild intermittent asthma, uncomplicated; E78.00 Pure hypercholesterolemia, unspecified; G47.33 Obstructive sleep apnea (adult) (pediatric); M10.9 Gout, unspecified; Z86.16 Personal history of COVID-19; Z79.85 Long-term (current) use of injectable non-insulin antidiabetic drugs; Z79.51 Long term (current) use of inhaled steroids; Z95.5 Presence of coronary angioplasty implant and graft; Z79.4 Long term (current) use of insulin; E66.01 Morbid (severe) obesity due to excess calories; Y84.0 Cardiac catheterization as the cause of abnormal reaction of the patient, or of later complication, without mention of misadventure at the time of the procedure
CPT/HCPCS: 36415; 71045; 76882; 80048; 80053; 81001; 81003; 82465; 82948; 83036; 83718; 83721; 83735; 83880; 84100; 84484; 85025; 85610; 85730; 87040; 87070; 87086; 87147; 87181; 87205; 93005; 93306; 93454; 94640; 96365; 96366; 96374; 96375; 97161; 97165; 97535; 99291; A9270; C1725; C1769; C1887; C1894; C9113; C9606; G0378; J0461; J0696; J1644; J1815; J2250; J2270; J3010; J7030; J7040

== ENCOUNTER 2023-08-07 13:01 | Outpatient (CLI) | payer MEDICARE, SELFPAY ==
--- NOTE | ~2023-08-07 | US_ITS ---
EXAMINATION: US venous doppler LE RT DATE: 08/07/2023 13:49 INDICATION: Right lower limb pain. TECHNIQUE: Grayscale ultrasound images without and with compression and Doppler ultrasound images of the right lower extremity veins were obtained. COMPARISON: None. FINDINGS: The visualized portions of right common femoral vein, profunda (deep) femoral vein, femoral vein, pop liteal vein, peroneal veins, posterior tibial veins, and greater saphenous vein outflow are patent. IMPRESSION: 1. No deep venous thrombosis. Reviewed, dictated and finalized at location A.
[2023-08-07 14:49] LABS: Alanine Aminotransferase 67 U/L (6-35); Alkaline Phosphatase 79 U/L (38-126); Anion Gap 10 mmol/L (8-16); Aspartate Amino Transferase 51 U/L (14-36); Bilirubin,Total 0.5 mg/dL (0.2-1.3); Blood Urea Nitrogen 52 mg/dL (7-17); Calcium 10.1 mg/dL (8.4-10.2); Carbon Dioxide 26 mmol/L (22-30); Chloride 105 mmol/L (98-107); Estimated Glomerular Filt Rate 26; Glucose 91 mg/dL (65-110); Potassium 3.9 mmol/L (3.4-5.0); Sodium 141 mmol/L (137-145)
[2023-08-07 14:50] LABS: Basophils Absolute Auto 0.1 K/mm3 (0.0-0.1); Basophils Percent Auto 0.6 % (0.2-1.2); Eosinophils Absolute Auto 0.4 K/mm3 (0-0.3); Eosinophils Percent Auto 4.4 % (0-4.4); Hematocrit 42.3 % (37.0-47.0); Hemoglobin 13.2 g/dL (12.0-15.0); Immature Granulocyte Absolute 0.06 K/mm3 (0.00-0.031); Immature Granulocyte Percent A 0.6 % (0-0.5); Lymphocytes Absolute Auto 1.92 K/mm3 (0.9-3.2); Mean Corpuscular HGB Conc 31.2 g/dl (32-36); Mean Corpuscular Hemoglobin 29.3 pg (26-34); Mean Corpuscular Volume 93.8 fl (80-100); Mean Platelet Volume 10.4 fl (7.4-10.4); Monocytes Absolute Auto 0.6 K/mm3 (0.1-0.6); Monocytes Percent Auto 6.1 % (2.6-8.5); Neutrophils Percent Auto 69.3 % (45.5-73.1); Platelet Count Result 522 k/mm3 (150-375); Red Blood Count 4.51 M/mm3 (4.2-5.4); Red Cell Distribution Width 14.6 % (11.5-14.5); White Blood Count 10.1 K/mm3 (4.5-10.0)
[2023-08-07 15:09] LABS: Erythrocyte Sedimentation Rate 25 mm/hr (0-20)
[2023-08-07 15:56] LABS: Iron 93 ug/dL (37-170)
[2023-08-07 16:07] LABS: Percent Iron Saturation 27 % (20-50)
== END 2023-08-07 13:02 | disposition home or self-care (01) ==
PROVIDERS: Internal Medicine; PCP Family Medicine; Visit Provider Family Medicine
DX: M79.604 Pain in right leg (principal); M79.89 Other specified soft tissue disorders; D64.9 Anemia, unspecified; L02.414 Cutaneous abscess of left upper limb; N18.4 Chronic kidney disease, stage 4 (severe)
CPT/HCPCS: 36415; 80053; 82728; 83540; 83550; 84550; 85025; 85652; 93971

== ENCOUNTER 2023-08-16 17:50 | Emergency (ER) | payer MEDICARE, SELFPAY ==
[2023-08-16] VITALS (33 sets, daily range): BP systolic 102–135; BP diastolic 61–92; PULSE 61–73; RESP 12–20; TEMP 36.6; O2SAT 96–100
--- NOTE | ~2023-08-16 | XR_ITS ---
EXAMINATION: XR chest 1V portable Exam Date/Time: 08/16/2023 18:25 CDT HISTORY: centralized cp. mi and heart stents x2wks ago Comparison: None. RESULT: Lines, tubes, and devices: None. Lungs and pleura: Stable streaky left basilar opacities likely representing atelectasis/scar. Cardiomediastinal silhouette: Stable. Other: No acute osseous or upper abdominal finding. IMPRESSION: No acute cardiopulmonary process. Reviewed, dictated and finalized at location K.
--- NOTE | 2023-08-16 18:09 | ECG_ITS ---
Measurements Intervals [place] Rate: 67 P: 90 NC: 179 QRS: -20 QRSD: 98 T: -38 QT: 372 QTc: 394 Interpretive Statements SINUS RHYTHM LOW QRS VOLTAGE IN PRECORDIAL LEADS ANTERIOR INFARCT, AGE INDETERMINATE INFERIOR INFARCT, RECENT BASELINE ARTIFACT- I, II, III, AVL ABNORMAL ECG COMPARED TO ECG 07/27/2023 16:47:12 MYOCARDIAL INFARCT FINDING NOW PRESENT Electronically Signed On 08-16-2023 21:02:25 CDT by Tavo Cristobal D.O.
--- NOTE | 2023-08-16 18:11 | ED.CHESTPAIN ---
HPI - Chest Pain General Chief Complaint: Chest Pain <Pankaj Herzog MD - Last Filed: 08/16/23 18:20> Stated Complaint: cp <Pankaj Herzog MD - Last Filed: 08/16/23 18:20> Time Seen by Provider: 08/16/23 17:59 <Pankaj Herzog MD - Last Filed: 08/16/23 18:20> Source: patient <Pnakaj Herzog MD - Last Filed: 08/16/23 18:20> Mode of arrival: EMS <Pankaj Herzog MD - Last Filed: 08/16/23 18:20> Limitations: no limitations <Pankaj Herzog MD - Last Filed: 08/16/23 18:20> History of Present Illness HPI narrative: 78-year-old female presenting with chest pain. Patient was here 2 weeks ago, had a diagnostic catheterization, then immediately had chest pain afterwards. Initially this did she need to go for open-heart surgery at [facility] but ended up putting a stent in here. They were going to have her follow up with [facility] in a few days now to have 2 more stents placed. Patient was doing well until about 45 minutes ago when she had an episode of retrosternal chest pain described as sharp and aching which lasted about 15 minutes. She took an aspirin 325 mg and went away. Currently asymptomatic. She just wanted to get checked out. <Pankaj Herzog MD - Last Filed: 08/16/23 18:20> 78-year-old female presenting with chest pain. Patient was here 2 weeks ago, had a diagnostic catheterization, then immediately had chest pain afterwards. Initial plan was to go for open-heart surgery at [facility] but ended up putting a stent in here. They were going to have her follow up with [facility] in a few days now to have 2 more stents placed. Patient was doing well until about 45 minutes ago when she had an episode of retrosternal chest pain described as sharp and aching which lasted about 15 minutes. She took an aspirin 325 mg and went away. Currently asymptomatic. She just wanted to get checked out. <Kiki Blank MD - Last Filed: 08/17/23 02:15> Related Data Home Medications: Home Medications Medication Instructions Recorded Confirmed furosemide 40 mg tablet 40 mg PO QAM 06/20/20 08/07/23 amlodipine 5 mg tablet 5 mg PO QAM 04/27/23 08/07/23 fluticasone 500 mcg-salmeterol 50 2 inh inhalation Q12H 04/27/23 08/07/23 mcg/dose blistr powdr for inhalation (Advair Diskus) allopurinol 100 mg tablet 100 mg PO QPM 07/25/23 08/07/23 clobetasol 0.05 % scalp solution 1 applic topical DAILY PRN Dry Skin 07/25/23 08/07/23 ezetimibe 10 mg tablet 10 mg PO QAM 07/25/23 08/07/23 insulin degludec 100 unit/mL (3 30 unit subcut QAM 07/25/23 08/07/23 mL) subcutaneous pen (Tresiba FlexTouch U-100 insulin) montelukast 10 mg tablet 10 mg PO QPM 07/25/23 08/07/23 oxybutynin chloride 5 mg tablet 5 mg PO QPM 07/25/23 08/07/23 valsartan 320 mg tablet 320 mg PO QAM 07/25/23 08/07/23 <Pankaj Herzog MD - Last Filed: 08/16/23 18:20> Allergies/Adverse Reactions: Allergies Allergy/AdvReac Type Severity Reaction Status Date / Time cat dander Allergy Mild Unknown Verified 08/07/23 11:05 mold Allergy Unknown Unknown Verified 08/07/23 11:05 empagliflozin Allergy Nausea and Verified 08/07/23 11:05 [From Jardiance] Vomiting <Pankaj Herzog MD - Last Filed: 08/16/23 18:20> Review of Systems Review of Systems: All systems are reviewed and are negative unless stated otherwise in the HPI. <Kiki Blank MD - Last Filed: 08/17/23 02:15> All systems reviewed & are unremarkable except as noted in HPI and below <Pankaj Herzog MD - Last Filed: 08/16/23 18:20> PMFSH Past Medical History Medical History: Medical History Anemia Asthma mild intermittent CAD (coronary artery disease) Chronic atrial fibrillation Chronic kidney disease, stage 4 (severe) COVID-19 (2021) Cystocele with rectocele Environmental allergies Gout High cholesterol History of blo
[2023-08-16 19:40] LABS: Basophils Percent Auto 0.4 % (0.2-1.2); Eosinophils Absolute Auto 0.5 K/mm3 (0-0.3); Eosinophils Percent Auto 5.9 % (0-4.4); Hematocrit 45.6 % (37.0-47.0); Hemoglobin 14.2 g/dL (12.0-15.0); Immature Granulocyte Absolute 0.03 K/mm3 (0.00-0.031); Immature Granulocyte Percent A 0.3 % (0-0.5); Lymphocytes Absolute Auto 2.56 K/mm3 (0.9-3.2); Lymphocytes Percent Auto 27.9 % (18.3-44.2); Mean Corpuscular HGB Conc 31.1 g/dl (32-36); Mean Corpuscular Hemoglobin 29.6 pg (26-34); Mean Corpuscular Volume 95.2 fl (80-100); Mean Platelet Volume 11.6 fl (7.4-10.4); Monocytes Absolute Auto 0.6 K/mm3 (0.1-0.6); Neutrophils Absolute Auto 5.4 K/mm3 (1.3-6.7); Neutrophils Percent Auto 58.5 % (45.5-73.1); Platelet Count Result 265 k/mm3 (150-375); Red Blood Count 4.79 M/mm3 (4.2-5.4); Red Cell Distribution Width 14.6 % (11.5-14.5); White Blood Count 9.2 K/mm3 (4.5-10.0)
[2023-08-16 20:09] LABS: Alanine Aminotransferase 24 U/L (6-35); Albumin Level 5.1 g/dL (3.5-5.1); Alkaline Phosphatase 78 U/L (38-126); Anion Gap 14 mmol/L (8-16); Aspartate Amino Transferase 32 U/L (14-36); Bilirubin,Total 0.8 mg/dL (0.2-1.3); Blood Urea Nitrogen 57 mg/dL (7-17); Calcium 10.4 mg/dL (8.4-10.2); Carbon Dioxide 22 mmol/L (22-30); Chloride 105 mmol/L (98-107); Estimated CRCL calculation 25 ml/min; Estimated Glomerular Filt Rate 26; Glucose 97 mg/dL (65-110); Potassium 4.7 mmol/L (3.4-5.0); Sodium 141 mmol/L (137-145)
[2023-08-16 20:11] LABS: Troponin I 0.017 ng/mL (0.000-0.034)
--- NOTE | 2023-08-16 22:46 | ECG_ITS ---
Measurements Intervals [place] Rate: 63 P: 78 RI: 186 QRS: -30 QRSD: 97 T: -40 QT: 392 QTc: 404 Interpretive Statements SINUS RHYTHM LOW QRS VOLTAGE IN PRECORDIAL LEADS ANTERIOR INFARCT, AGE INDETERMINATE INFERIOR INFARCT, PROBABLY RECENT ABNORMAL ECG COMPARED TO ECG 08/16/2023 17:54:38 NO SIGNIFICANT CHANGES Electronically Signed On 08-17-2023 16:50:42 CDT by Tavo Cristobal D.O.
[2023-08-16 23:10] LABS: Troponin I 0.018 ng/mL (0.000-0.034)
[2023-08-17] VITALS (13 sets, daily range): BP systolic 121–136; BP diastolic 67–74; PULSE 64–71; RESP 13–19; O2SAT 95–100
[2023-08-17 02:02] LABS: Troponin I 0.015 ng/mL (0.000-0.034)
== END 2023-08-17 02:46 | disposition home or self-care (01) ==
PROVIDERS: Emergency Medicine; Emergency Provider Emergency Medicine; PCP Family Medicine
DX: I25.10 Atherosclerotic heart disease of native coronary artery without angina pectoris (principal); R07.9 Chest pain, unspecified; I48.20 Chronic atrial fibrillation, unspecified; I12.9 Hypertensive chronic kidney disease with stage 1 through stage 4 chronic kidney disease, or unspecified chronic kidney disease; I34.1 Nonrheumatic mitral (valve) prolapse; E11.22 Type 2 diabetes mellitus with diabetic chronic kidney disease; N18.4 Chronic kidney disease, stage 4 (severe); J45.20 Mild intermittent asthma, uncomplicated; E78.00 Pure hypercholesterolemia, unspecified; G47.33 Obstructive sleep apnea (adult) (pediatric); M19.90 Unspecified osteoarthritis, unspecified site; R32 Unspecified urinary incontinence; Z95.5 Presence of coronary angioplasty implant and graft; Z86.16 Personal history of COVID-19; Z79.85 Long-term (current) use of injectable non-insulin antidiabetic drugs; Z79.4 Long term (current) use of insulin; Z79.82 Long term (current) use of aspirin; R94.31 Abnormal electrocardiogram [ECG] [EKG]
CPT/HCPCS: 36415; 71045; 80053; 84484; 85025; 93005; 99284

== ENCOUNTER 2023-09-04 17:56 | Emergency (ER) | payer MEDICARE, SELFPAY ==
[2023-09-04] VITALS (8 sets, daily range): BP systolic 103–134; BP diastolic 54–84; PULSE 79–85; RESP 16–20; TEMP 36.5; O2SAT 97–100
--- NOTE | 2023-09-04 18:41 | ECG_ITS ---
SEE SCANNED COPY FOR CONFIRMED REPORT MTDD
[2023-09-04] MEDS: METOCLOPRAMIDE HCL INJ 10 MG/2 ML VIAL IV PUSH (19:18)
[2023-09-04] MEDS: BELLADONNA ALK/PHENOB ELIX 10 ML, MAG HYDROX/ALUMINUM HYD/SIMETH 30 ML, LIDOCAINE HCL 2... PO (19:23)
[2023-09-04 19:27] LABS: Basophils Percent Auto 0.3 % (0.2-1.2); Eosinophils Absolute Auto 0.3 K/mm3 (0-0.3); Eosinophils Percent Auto 3.1 % (0-4.4); Hematocrit 38.3 % (37.0-47.0); Hemoglobin 12.4 g/dL (12.0-15.0); Immature Granulocyte Absolute 0.03 K/mm3 (0.00-0.031); Immature Granulocyte Percent A 0.3 % (0-0.5); Lymphocytes Absolute Auto 1.73 K/mm3 (0.9-3.2); Lymphocytes Percent Auto 17.4 % (18.3-44.2); Mean Corpuscular HGB Conc 32.4 g/dl (32-36); Mean Corpuscular Hemoglobin 30.1 pg (26-34); Mean Platelet Volume 11.2 fl (7.4-10.4); Monocytes Absolute Auto 0.6 K/mm3 (0.1-0.6); Monocytes Percent Auto 6.3 % (2.6-8.5); Neutrophils Absolute Auto 7.2 K/mm3 (1.3-6.7); Neutrophils Percent Auto 72.6 % (45.5-73.1); Platelet Count Result 271 k/mm3 (150-375); Red Blood Count 4.12 M/mm3 (4.2-5.4); Red Cell Distribution Width 14.4 % (11.5-14.5); White Blood Count 9.9 K/mm3 (4.5-10.0)
[2023-09-04 19:37] LABS: Alanine Aminotransferase 20 U/L (6-35); Albumin Level 4.8 g/dL (3.5-5.1); Alkaline Phosphatase 86 U/L (38-126); Anion Gap 13 mmol/L (4-12); Aspartate Amino Transferase 25 U/L (14-36); Bilirubin,Total 0.5 mg/dL (0.2-1.3); Blood Urea Nitrogen 54 mg/dL (7-17); Calcium 10.1 mg/dL (8.4-10.2); Carbon Dioxide 25 mmol/L (22-30); Chloride 103 mmol/L (98-107); Estimated CRCL calculation 18 ml/min; Estimated Glomerular Filt Rate 17; Glucose 117 mg/dL (65-110); Potassium 3.4 mmol/L (3.4-5.0); Sodium 141 mmol/L (137-145)
[2023-09-04 19:48] LABS: Troponin I 0.013 ng/mL (0.000-0.034)
--- NOTE | 2023-09-04 20:51 | ED.GENADULT ---
HPI - General Adult General Chief complaint: Headache Stated complaint: VOMITING/HEADACHE Time Seen by Provider: 09/04/23 18:12 History of Present Illness HPI narrative: 78-year-old female who has had ?5 heart attacks? in the last month with cardiac stenting at outside hospital presents for evaluation of nausea and vomiting. Patient states she had difficulty eating food earlier today and after attempting to show an episode of vomiting. Afterwards she felt a dull global headache. Patient wanted to be extra careful because of her recent cardiac insults and thus presented to the ER. She has not experienced any chest pain or shortness of breath. All symptoms have resolved prior to arrival. Related Data Home Medications Medication Instructions Recorded Confirmed furosemide 40 mg tablet 40 mg PO QAM 06/20/20 08/07/23 fluticasone 500 mcg-salmeterol 50 2 inh inhalation Q12H 04/27/23 08/07/23 mcg/dose blistr powdr for inhalation (Advair Diskus) allopurinol 100 mg tablet 100 mg PO QPM 07/25/23 08/07/23 clobetasol 0.05 % scalp solution 1 applic topical DAILY PRN Dry Skin 07/25/23 08/07/23 ezetimibe 10 mg tablet 10 mg PO QAM 07/25/23 08/07/23 insulin degludec 100 unit/mL (3 30 unit subcut QAM 07/25/23 08/07/23 mL) subcutaneous pen (Tresiba FlexTouch U-100 insulin) oxybutynin chloride 5 mg tablet 5 mg PO QPM 07/25/23 08/07/23 valsartan 320 mg tablet 320 mg PO QAM 07/25/23 08/07/23 Allergies Allergy/AdvReac Type Severity Reaction Status Date / Time cat dander Allergy Mild Unknown Verified 08/07/23 11:05 mold Allergy Unknown Unknown Verified 08/07/23 11:05 empagliflozin Allergy Nausea and Verified 08/07/23 11:05 [From Jardiance] Vomiting Review of Systems Review of Systems: CONSTITUTIONAL: Denies fever, chills, or sweats. EYES: Denies visual changes, redness, or discharge. ENT: Denies rhinorrhea, congestion, sore throat, or otalgia. CARDIOVASCULAR: Denies chest pain, palpitations, or edema. RESPIRATORY: Denies cough or dyspnea. GASTROINTESTINAL: Denies abdominal pain, nausea, vomiting, or diarrhea. GENITOURINARY: Denies dysuria or hematuria. SKIN: Denies rash or itching. MUSCULOSKELETAL: Denies back pain, joint pain, or myalgia. NEUROLOGIC: Denies headache, numbness, or weakness. PSYCHIATRIC: Denies anxiety or depression. [facility] Past Medical History Medical History Anemia Asthma mild intermittent CAD (coronary artery disease) Chronic atrial fibrillation Chronic kidney disease, stage 4 (severe) COVID-19 (2021) Cystocele with rectocele Environmental allergies Gout High cholesterol History of blood transfusion HTN (hypertension) Lumbar radiculopathy Mild bibasilar atelectasis Mitral valve disease SATYA on CPAP Osteoarthritis of multiple joints Post menopausal syndrome Thickened endometrium Type 2 diabetes mellitus with hyperglycemia Urinary incontinence Surgical History Surgical History H/O dilation and curettage H/O heart artery stent H/O knee surgery 2010, bilateral H/O myomectomy 2014 [place] teeth removed Family History Family History Mother Diabetes mellitus Hypertension Family history of malignant neoplasm of breast in first degree relative Sibling Diabetes mellitus Family history of chronic obstructive pulmonary disease Father Cerebrovascular accident, Onset Age: 64 Hypertension Social History Social History Smoking status: Never smoker Second hand tobacco smoke exposure: No Alcohol intake: never Substance use: never Substance use type: does not use Do You Feel Safe in your Home?: Yes Lack of Transportation: No Lack of Food: Never True Current Housing: I Have Housing Concerned About Future Housing: No Difficulty Paying Gas/E
[2023-09-04] MEDS: SODIUM CHLORIDE 0.9% IV 500 ML 999 ML IV CONT (20:59)
== END 2023-09-04 21:25 | disposition home or self-care (01) ==
PROVIDERS: Emergency Provider Emergency Medicine; PCP Family Medicine
DX: R11.2 Nausea with vomiting, unspecified (principal); I25.10 Atherosclerotic heart disease of native coronary artery without angina pectoris; I48.20 Chronic atrial fibrillation, unspecified; N18.4 Chronic kidney disease, stage 4 (severe); E11.22 Type 2 diabetes mellitus with diabetic chronic kidney disease; G47.33 Obstructive sleep apnea (adult) (pediatric); I12.9 Hypertensive chronic kidney disease with stage 1 through stage 4 chronic kidney disease, or unspecified chronic kidney disease
CPT/HCPCS: 36415; 80053; 84484; 85025; 93005; 96361; 96374; 99284; A9270; J2765; J7040

== ENCOUNTER 2023-12-31 11:15 | Outpatient (RCR) | payer MEDICARE, SELFPAY ==
[2023-10-01 12:13] LABS: Glucose Point of Care 87 mg/dl (65-105)
[2023-10-21 11:47] LABS: Glucose Point of Care 152 mg/dl (65-105)
[2023-10-21 12:29] LABS: Glucose Point of Care 112 mg/dl (65-105)
[2023-11-30 12:12] LABS: Glucose Point of Care 150 mg/dl (65-105)
[2023-12-02 11:33] LABS: Glucose Point of Care 118 mg/dl (65-105)
[2023-12-02 12:09] LABS: Glucose Point of Care 91 mg/dl (65-105)
[2023-12-03 12:36] LABS: Glucose Point of Care 86 mg/dl (65-105)
[2023-12-31 11:31] LABS: Glucose Point of Care 167 mg/dl (65-105)
[2023-12-31 12:30] LABS: Glucose Point of Care 135 mg/dl (65-105)
== END 2023-12-31 23:59 | disposition home or self-care (01) ==
LOC: ANHCPREHAB 11:15
PROVIDERS: PCP Family Medicine; Visit Provider Internal Medicine Cardiovascular Disease
DX: Z98.61 Coronary angioplasty status (principal)
CPT/HCPCS: 93798

== ENCOUNTER 2024-01-28 11:15 | Outpatient (RCR) | payer MEDICARE, SELFPAY ==
[2024-01-20 08:22] LABS: Glucose Point of Care 126 mg/dl (65-105)
[2024-01-28 10:09] LABS: Glucose Point of Care 195 mg/dl (65-105)
== END 2024-02-18 13:33 | disposition home or self-care (01) ==
LOC: ANHCPREHAB 11:15
PROVIDERS: PCP Family Medicine; Visit Provider Internal Medicine Cardiovascular Disease
DX: Z95.5 Presence of coronary angioplasty implant and graft (principal); E11.22 Type 2 diabetes mellitus with diabetic chronic kidney disease
CPT/HCPCS: 82948; 93798

== ENCOUNTER 2024-07-27 12:49 | Outpatient (CLI) | payer MEDICARE, SELFPAY ==
--- NOTE | ~2024-07-27 | XR_ITS ---
XR chest 2V Ordering provider: Dominique Cheng PA-C History: 79 years Female with . R06.00 - Dyspnea, unspecified . Comparison: August 16, 2023 FINDINGS: MEDIASTINUM: The cardiac silhouette is not enlarged. LUNGS: No effusions or pneumothorax. Opacification in the left lower lobe suggestive of atelectasis v ersus pneumonia. OTHER: No free air under the diaphragm. IMPRESSION: Left basilar atelectasis versus pneumonia. Reviewed, dictated and finalized at location A. ER [facility]
== END 2024-07-27 12:50 | disposition home or self-care (01) ==
LOC: MICIMG 12:50
PROVIDERS: PCP Family Medicine; Visit Provider Student in an Organized Health Care Education/Training Program
DX: R06.00 Dyspnea, unspecified (principal)
CPT/HCPCS: 71046